=== PATIENT | male | born 1955 | race Caucasian/White ===

== ENCOUNTER 2022-11-18 19:22 | Emergency (ER) | payer OTHER, BC, MEDICAID ==
[~2022-11-18] VITALS: Ht 175.3 cm; Wt 48.2 kg
[2022-11-18 20:06] LABS: BASOPHILS # (AUTO) 0.1 X10'3 (0-0.2); BASOPHILS % (AUTO) 0.8 % (0-1); EOSINOPHILS # (AUTO) 0.5 X10'3 (0-0.9); EOSINOPHILS % (AUTO) 5.6 % (0-6); HEMATOCRIT 48.4 % (42.0-52.0); LYMPHOCYTES # (AUTO) 2.8 X10'3 (1.1-4.8); LYMPHOCYTES % (AUTO) 30.3 % (21-51); MEAN CORPUSCULAR VOLUME 93.8 FL (78-98); MEAN PLATELET VOLUME 8.3 FL (7.4-10.4); MONOCYTES # (AUTO) 0.6 X10'3 (0-0.9); MONOCYTES % (AUTO) 6.8 % (2-12); NEUTROPHILS # (AUTO) 5.1 X10'3 (1.8-7.7); NEUTROPHILS % (AUTO) 56.5 % (42-75); PLATELET COUNT 299 X10'3 (140-440); RED BLOOD COUNT 5.15 X10'6 (4.70-6.10); RED CELL DISTRIBUTION WIDTH 14.1 % (11.5-14.5); WHITE BLOOD COUNT 9.1 X10'3 (4.5-11.0)
[2022-11-18 20:28] LABS: ALANINE AMINOTRANSFERASE 19 U/L (12-78); ALBUMIN 3.6 G/DL (3.4-5.0); ALBUMIN/GLOBULIN RATIO 0.9 (1.1-1.5); ALKALINE PHOSPHATASE 70 IU/L (46-116); ANION GAP 8 (8-16); ASPARTATE AMINO TRANSFERASE 18 U/L (10-37); BILIRUBIN,TOTAL 0.3 MG/DL (0.1-1.0); BLOOD UREA NITROGEN 20 MG/DL (7-18); BUN/CREATININE RATIO 20.6 (10.0-20.0); CALCIUM 9.4 MG/DL (8.5-10.1); CHLORIDE 105 MMOL/L (99-107); CREATININE 0.97 MG/DL (0.60-1.10); GLUCOSE 117 MG/DL (70-104); POTASSIUM 3.9 MMOL/L (3.5-5.1); PRO BRAIN NATRIURETIC PEPTIDE 122 PG/ML (0-125); SODIUM 140 MMOL/L (135-145); TOTAL CARBON DIOXIDE 26.6 MMOL/L (24-32); TOTAL PROTEIN 7.5 G/DL (6.4-8.2); eCRCL 50 ML/MIN; eGFR 77 ML/MIN
[2022-11-18 21:40] VITALS: TEMP 97.8
--- NOTE | 2022-11-18 23:27 | NUR ---
PT WAITING IN LOBBY FOR ER ROOM, ER IS FULL OF ADMITTED PT, PT IS RESTING QUIETLY, NO RESP DISTRESS, TALKING FULL SENTENCES
[2022-11-19 02:14] VITALS: BP 126/92; PULSE 100; RESP 18; O2SAT 97
[2022-11-19] MEDS ORDERED: BUDE10.22 INH (02:21)
[2022-11-19] MEDS ORDERED: ALB0.5UD IH (02:21)
[2022-11-19] MEDS ORDERED: ALBU18HF2 INH (02:21)
[2022-11-19] MEDS ORDERED: NEBU-237 (02:21)
[2022-11-19] MEDS ORDERED: triamcinolone acetonide 40mg/ml inj IM ONE (02:25)
== END 2022-11-19 02:30 | disposition home or self-care (01) ==
LOC: ER 19:23
DX: J45.901 Unspecified asthma with (acute) exacerbation (principal); Z20.822 Contact with and (suspected) exposure to COVID-19; Z56.0 Unemployment, unspecified
CPT/HCPCS: 36415; 80053; 83880; 84484; 85025; 87811; 93005; 96372; 99284; J3301

== ENCOUNTER 2024-11-03 17:32 | Inpatient (IN) | payer OTHER, BC, MEDICAID ==
[~2024-11-03] VITALS: Ht 165.1 cm; Wt 58.2 kg
[~2024-11-03 17:32] MED LIST: ALBU18HF2 INH; BUDE10.22 INH; NEBU-237; rocuronium 10mg/ml inj IV ONE
--- NOTE | 2024-11-03 17:45 | ELECTROCARDIOGRAPH REPORT ---
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
--- NOTE | 2024-11-03 17:49 | Physician Documentation ---
History of Present Illness General Chief Complaint: Respiratory Distress Stated Complaint: SOB Time Seen by MD: 17:41 Primary Medical Doctor: NEW TO [facility] History of Present Illness Initial Comments Patient is a 69-year-old male brought in in respiratory failure by EMS. The EMS call was for shortness of breath. When EMS arrived the patient was agitated and fighting with EMS. The patient was restrained in during the restraint he became apneic and bradycardic with a heart rate of 30. They bag-valve ventilated the patient he was unresponsive during transport. On arrival to the emergency department patient was unresponsive in the resuscitation [place] he did become responsive and became significantly agitated. History was limited secondary to the patient being disoriented and unable to provide any history the history was provided by EMS. Medication Reconciliation Allergies: Coded Allergies: No Known Allergies (Unverified , 11/03/24) Scheduled Fluticasone Propion/Salmeterol (Fluticasone-Salmeterol 250-50), 1 PUFFS INH Q12H, (Reported) Tiotropium [place] (Spiriva), 1 CAP INH DAILY, (Reported) Scheduled PRN Albuterol Sulfate (Ventolin Hfa), 2 PUFFS INH Q4HPRN PRN for wheezing, (Reported) Miscellaneous Medications Unable to Obtain Medications (Unable to Obtain Medications), (Reported) Durable Medical Equipment Nebulizer (Nebulizer), UNIT, (DME) Past Medical History Past Medical History: COPD Past Surgical History: no surgical history Smoking: Cigarettes, Greater than 1 pack/day Alcohol Use: None Drug Use: none Lives with: Family Lives In: Home Occupation: unemployed Review of Systems Unable to obtain complete ROS: altered mental status Physical Exam Physical Exam Vital Signs: Heart Rate: 135, Respiratory Rate: 0, BP: 176/83, Pulse Oximetry: 87, Weight: 59.090 Physical Exam VITALS: Reviewed and as above. GENERAL: Patient was initially unresponsive in respiratory failure HEENT: Normocephalic, atraumatic, PERRL, EOMI, dry mucosa, no erythema RESPIRATORY: Bilateral wheezes and rhonchi severe respiratory distress CHEST: No accessory muscle use, no retractions CV: Tachycardic rate, rhythm, no edema, no murmur, No: JVD GI: Soft, non-tender, bowels sounds present, no rebound, guarding, or rigidity BACK: No CVA tenderness, or swelling MUSCULOSKELETAL: No deformities, no edema SKIN: Warm and extremely diaphoretic, no rash NEURO: Initially the patient was not responding to painful stimuli patient did become agitated moved all extremities PSYCH: Normal mood and affect, no agitation Progress Results/Orders Reviewed/noted all lab results: Yes Results/Orders Orders - JAROCHO FORDE MD Culture Blood (11/03/24 17:41) Chest,Single View (11/03/24 17:41) Covid19 Binax Poc Result Entry (11/03/24 17:53) Cult Urine + [place] [address] (11/03/24 18:28) Abg (Arterial Blood Gas) (11/03/24 ) Sputum Inducement (11/03/24 ) Completed Orders - JAROCHO FORDE MD Electrocardiogram (11/03/24 17:41) Cbc/Diff (11/03/24 17:41) MG (11/03/24 17:41) Chest,Single View (11/03/24 17:41) Procalcitonin (11/03/24 17:41) BMP (11/03/24 17:41) Hs Troponin I W Calculations (11/03/24 17:41) Hs Troponin I W Calculations (11/03/24 19:41) Hs Troponin I W Calculations (11/03/24 20:41) Lacticsepsis (11/03/24 17:41) PBNP (11/03/24 17:41) Normal Saline 1000ml (0.9% Sodium Chlori (11/03/24 17:45) Ceftriaxone 2gm/D5w 50ml Bag (Rocephin 2 (11/03/24 17:45) Methylprednisolone Sod Succ (Solumedrol (11/03/24 17:45) Magnesium Sulf-Water 2g/50ml (Magnesium (11/03/24 17:45) Ua W/Microscopic, Cult If Ind (11/03/24 18:01) Lactic,2hr (11/03/24 19:30) Vital Signs 11/03/24 11/03/24 11/03/24 11/03/24 17:34 17:45 17:50 17:59 Pulse 135 139 Resp 0 16 B/P (MAP) 176/83 178/92 Pulse Ox 87 98 FiO2 50 35 811/03/24 11/03/24 11/03/24 18:01 18:12 18:13 18:30 Temp 97.7 Pulse 126 121 Resp 18 21 18 B/P (MAP) 187/104 156/85 (108) 146/84 (104) Pulse Ox 94 92 FiO2 35 35 11/03/24 11/03/24 11/03/24 11/03/24 18:45 18:46 18:52 18:54 Pulse 139 Resp 16 B/P (MAP) 178/92 178/92 180/98 Pulse Ox 93 FiO2 50 11/03/24 11/03/24 11/03/24 11/03/24 18:56 18:58 19:06 19:13 Temp 97.0 Pulse 121 Resp 20 18 B/P (MAP) 187/107 (133) 187/107 187/107 Pulse Ox 88 FiO2 35 11/03/24 11/03/24 11/03/24 11/03/24 19:17 19:33 19:58 19:59 Temp 96.7 97.7 Pulse 116 109 Resp 18 18 B/P (MAP) 129/71 (90) 78/53 120/70 (87) 120/70 Pulse Ox 94 99 O2 Flow Rate 50.0 50.0 11/03/24 11/03/24 11/03/24 11/03/24 20:05 20:15 20:30 20:37 Temp 97.8 97.5 Pulse 103 107 Resp 18 23 B/P (MAP) 87/59 107/65 (79) 151/82 125/69 (87) Pulse Ox 98 99 FiO2 50 50 11/03/24 11/03/24 11/03/24 20:42 21:09 21:38 Temp 97.2 Pulse 102 99 Resp 18 18 18 B/P (MAP) 100/61 (74) Pulse Ox 98 98 FiO2 50 50 Laboratory Tests Test 11/03/24 17:34 11/03/24 17:36 11/03/24 17:52 11/03/24 18:01 Glucometer 247 H White Blood Count 10.7 Red Blood Count 4.56 L Hemoglobin 14.2 Hematocrit 43.2 Mean Corpuscular Volume 94.6 Mean Corpuscular Hemoglobin 31.0 Mean Corpuscular Hemoglobin Concent 32.8 L Red Cell Distribution Width 15.6 H Platelet Count 281 Mean Platelet Volume 8.5 Neutrophils (%) (Auto) 45.6 Lymphocytes (%) (Auto) 42.1 Monocytes (%) (Auto) 6.1 Eosinophils (%) (Auto) 5.2 Basophils (%) (Auto) 1.0 Neutrophils # (Auto) 4.9 Lymphocytes # (Auto) 4.5 Monocytes # (Auto) 0.7 Eosinophils # (Auto) 0.6 Basophils # (Auto) 0.1 CBC Comment Sodium Level 139 Potassium Level 3.6 Chloride Level 103 Carbon Dioxide Level 18.9 L Anion Gap 17 H Blood Urea Nitrogen 23 H Creatinine 1.79 H Estimated GFR/1.73 m2 38 BUN/Creatinine Ratio 12.8 Glucose Level 283 H Lactic Acid Level 8.1 *H Calcium Level 8.7 Magnesium Level 2.5 H Troponin I High Sensitivity 6 Pro-B-Type Natriuretic Peptide 62 Albumin 3.8 Procalcitonin < 0.05 Chemistry Comments Blood Gas Specimen Type Arterial Blood Gas Puncture Site Rr O2 Saturation 98.4 H Arterial Blood pH (Temp corrected) 7.085 *L Arterial Blood pCO2 (Temp correct) 61.1 *H Arterial Blood pO2 (Temp corrected) 160.4 H Arterial Blood PO2/FiO2 Ratio 3.21 Arterial Blood HCO3 17.9 L Arterial Blood Base Excess -12.7 L Arterial Blood Oxyhemoglobin 97.3 Arterial Blood Carboxyhemoglobin 0.9 Arterial Blood Methemoglobin 0.2 Arterial Blood Deoxyhemoglobin 1.6 Clement Test Positive Blood Gas Hemoglobin 14.9 Blood Gas Temperature 37.0 Blood Gas Set Respiration Rate 16 Blood Gas Modality Vent - aprv FiO2 50.0 Blood Gas Tidal Volume 500 Blood Gas PEEP 5 Blood Gas Critical Value Called To [facility] Urine Specimen Description Coulter cath Urine Color Yellow Urine Clarity Slightly cloudy Urine pH 6.0 Urine Specific [place] >=1.030 Urine Protein >=300 H Urine Glucose (UA) 250 H Urine Ketones Negative Urine Occult Blood Large H Urine Nitrite Negative Urine Bilirubin Negative Urine Urobilinogen 0.2 Urine Leukocyte Esterase Negative Urine RBC Tntc Urine WBC Tntc H Urine Squamous Epithelial Cells None seen Urine Bacteria 4+ Urine Coarse Granular Casts 3-5 Urine Culture Indicated Indicated Volume Urine Centrifuged 10 ml Urine Comment Urine Opiates Screen Negative Urine Methadone Screen Negative Urine Fentanyl Screen Negative Urine Barbiturates Screen Negative Urine Phencyclidine Screen Negative Urine Amphetamines Screen Positive Urine Benzodiazepines Screen Negative Urine Cocaine Screen Negative Urine Cannabinoids Screen Negative Drug Screen Comment Test 11/03/24 18:03 11/03/24 20:01 11/03/24 21:15 11/03/24 21:47 SARS-CoV-2 Antigen (Rapid) Negative Lactic Acid Level 1.1 Troponin I High Sensitivity 31 37 Troponin I High Sens Percent Delta 416 19 Troponin I Hi Sens Absolute Change 25 6 Magnesium Level 2.0 Thyroid Stimulating Hormone (TSH) 1.20 Microbiology Date/Time Source Procedure Growth Status 11/03/24 18:28 Urine Coulter Cath Urine Culture - Preliminary NO GROWTH AFTER 1 DAY Resulted 11/03/24 18:21 Blood Hand Left Blood Culture - Preliminary NO GROWTH AFTER 1 DAY Resulted EKG/XRAY/CT/US/VASC/MRI EKG : Intepreting Monitor?: Yes Indication: shortness of breath EKG: sinus tach EKG Blocks: none [place]: normal Hypertrophy: none Additional Comment 1743: ST rate 152. No STEMI 2157: ST rate 105. No acute ST changes. No STEMI Chest X-Ray : Interpreted By: both Views: 1 VIEW Indication: post procedure Lungs: normal Mediastinum: normal Ribs/Bones: normal Abdomen: normal Impression: no acute disease Additional Comments [place] [id number] DIAGNOSTIC RADIOLOGY Patient: CYNTHIA GIBBS Medical Record: [id number] [facility] : 1955, Age: 69 Sex: Male Location: ER Patient Status: [facility] ER Service Date/Time: 11/03/241740 Ordering Physician: JAROCHO FORDE MD Exam: CHEST,SINGLE VIEW CHEST RADIOGRAPH Indication: SEPSIS Technique: Single frontal view of the chest was obtained Comparison: None FINDINGS: Lines and Tubes: Endotracheal and enteric tubes are in satisfactory position. Lungs: No focal consolidation. Mild hyperinflation of the lungs. Temporary cardiac pacing device overlies the chest wall. Pleura: No effusion. No pneumothorax. Cardiomediastinal contours: Unremarkable Bones: No acute osseous abnormality. IMPRESSION: No acute cardiopulmonary disease. Electronically Signed by:DOTTY LOPES DO Date & Time: 11/03/241803 Dictated by: DOTTY LOPES DO Dictation date and time: 11/03/241803 Primary Care Provider: NO PRIMARY CARE PROVIDER cc: JAROCHO FORDE MD ~ CT : Interpreted By: self CT: head With Contrast?: No Impression [address] [address] CAT SCAN Patient: CYNTHIA GIBBS Medical Record: [id number] [facility] : 1955, Age: 69 Sex: Male Location: ER Patient Status: [facility] ER Service Date/Time: 11/03/241821 Ordering Physician: TESSY MONTENEGRO NP Exam: CT HEAD EXAM: CT CT HEAD INDICATION: Altered LOC TECHNIQUE: CT of the head without intravenous contrast. Radiation Dose Information: CT Dose: CTDI volume is 68.48 mGy. Dose-length product is 1359.81 mGy*cm The dose indicators for CT are the volume Computed Tomography (CT) Dose Index (CTDIvol) and the Dose Length Product (DLP), and are measured in units of mGy and mGy-cm, respectively. These indicators are not patient dose, but values generated from the CT scanner acquisition factors. The report includes radiation exposure data for exposures received during this examination. COMPARISON: None FINDINGS: Evaluation is degraded by streak artifact. No acute territorial infarct, intracranial hemorrhage, or mass effect. There are global involutional changes with compensatory prominence of the ventricles and sulci. Patchy periventricular and subcortical white matter hypoattenuation is nonspecific but may be related to small vessel ischemic disease. The orbits are normal. Opacification of the right maxillary antrum and ethmoid air cells. Subtotal opacification of the left maxillary antrum. Moderate mucosal thickening within the right sphenoid sinus and frontal sinuses. In cidental note of endotracheal and nasogastric tubes. The osseous structures are unremarkable. IMPRESSION: 1. Artifact degraded evaluation without evidence for acute territorial infarct, intracranial hemorrhage, or mass effect. 2. Age-related involutional changes. Chronic microvascular changes. 3. Paranasal sinus disease as detailed. 4. If clinical symptoms persist, MRI may be beneficial in further evaluation. Electronically Signed by:PO GRECO MD Date & Time: 11/03/242006 Dictated by: PO GRECO MD Dictation date and time: 11/03/242006 Primary Care Provider: NO PRIMARY CARE PROVIDER cc: TESSY MONTENEGRO HEARING AID MECHANIC ~ [place] [id number] CAT SCAN Patient: CYNTHIA GIBBS Medical Record: [id number] [facility] : 1955, Age: 69 Sex: Male Location: ER Patient Status: [facility] ER Service Date/Time: 11/03/241821 Ordering Physician: TESSY MONTENEGRO HEARING AID MECHANIC Exam: CT CHEST ABDOMEN PELVIS EXAM: CT CT CHEST ABDOMEN PELVIS History: Altered LOC/Abnormal labs Comparison Study: None TECHNIQUE: Multidetector CT of the chest, abdomen, and pelvis was performed. Imaging was performed without IV contrast. Axial, coronal, and sagittal multiplanar reformats were obtained from the axial data set by the technologist. Radiation Dose : CTDI vol 21.0 mGy, DLP 1709.58 mGy*cm. Findings: CT chest: Evaluation is degraded by respiratory motion. Lungs: An endotracheal tube is noted. Assessment of the airways is suboptimal given significant motion artifact, and narrowing of the mainstem bronchi cannot be excluded. There is prominent bronchial wall thickening throughout the lungs, with likely mucoid impaction, most pronounced within the lower lobes. There is interlobular septal thickening. There is pleural parenchymal scarring of the lung apices. Pleura: Unremarkable Heart/Great vessels: No cardiomegaly or pericardial effusion. There are mild atherosclerotic calcifications of the aorta. Ectasia of the ascending aorta measuring up to 3.9 cm. Mediastinum: Unremarkable. Soft tissues/Bones: Unremarkable CT abdomen/pelvis: Liver: Unremarkable. Spleen: Unremarkable. Pancreas: Unremarkable. Gallbladder: Unremarkable. Adrenals: Unremarkable. Kidneys: Unremarkable. No hydronephrosis. Pelvic Viscera: Marked prostatomegaly. A Coulter catheter and gas is seen within the urinary bladder. Vasculature: Ectasia of the infrarenal abdominal aorta. Moderate atherosclerotic aortoiliac calcifications. Retroperitoneum: Unremarkable. Bowel: Colonic diverticulosis without CT evidence of diverticulitis. No bowel obstruction. The appendix is normal. A nasogastric tube is noted. Musculoskeletal: Degenerative changes of the lumbar spine. Soft tissues: Unremarkable. Impression: 1. Motion degraded evaluation. Suboptimal assessment of the mainstem bronchi with narrowing and/or aspiration not excluded. Prominent bronchial wall thickening, with likely mucoid impaction, sequela of aspiration cannot be excluded. 2. Additional findings as detailed. Electronically Signed by:PO GRECO MD Date & Time: 11/03/242027 Dictated by: PO GRECO MD Dictation date and time: 11/03/242027 Primary Care Provider: NO PRIMARY CARE PROVIDER cc: TESSY MONTENEGRO HEARING AID MECHANIC ~ Medical Decision Making Findings Patient presented for respiratory distress/shortness for breath. Per EMS has a history of COPD. Prior to arrival patient became unresponsive requiring respiratory support via Ambu bag. Considered hypoglycemia. On arrival his blood glucose was checked and was in the 200s. Considered narcotic overdose and patient was given Narcan. Few minutes after Narcan administration he did start yelling and screaming. He was combative and moving all extremities and had no purposeful movement. Given his severe respiratory distress he was intubated immediately by Dr. Forde without complication. Given the altered mental status CTA of the head was completed. There was no intracranial abnormality seen. He had an elevated lactic acid initially and he was treated with IV fluids. A CT scan of the chest, abdomen and pelvis was performed with no acute abnormalities seen though there is a possibility of aspiration seen on chest CT. He was treated with ceftriaxone. Being admitted to the regional owner operator truck driver service for further evaluation and management of his acute respiratory condition. Case was discussed extensively with initial supervising physician, Dr. Forde. Condition was also reviewed at intervals with fast food shift supervisor supervising physician, Dr. Seals. Case was signed out to regional owner operator truck driver who agreed to evaluate patient for admission. Departure Disposition: ADMITTED INPATIENT Admitted to Inpatient Unit: to regional owner operator truck driver Admission Level of Care: Critcal Care Impression: Primary Impression: COPD exacerbation Additional Impression: Respiratory distress Condition: Critical Referrals: NO PRIMARY CARE PROVIDER (PCP) Critical Care Note Total Time (mins): 45 Critical Care Note The very real possibility of a deterioration of this patient's condition required the highest level of my preparedness for sudden, emergent intervention. I provided critical care services, which included medication orders, frequent reevaluations of the patient's condition and response to treatment, ordering and reviewing test results, and discussing the case with various consultants. Excludes time spent performing separately billable procedures. The critical care time associated with the care of the patient was 45 minutes Additional Comment Additional Comment The patient came in in respiratory failure the patient became significantly agitated after being bag-valve ventilated he was initially unresponsive he then became agitated and continued respiratory distress the decision was made to intubate the patient the patient was intubated utilizing rapid sequence intubation the patient received etomidate 10 mg of 50 mg of rocuronium and was intubated with direct laryngoscopy. Capnography demonstrated CO2 return and lungs were auscultated bilaterally. Chest x-ray demonstrated tube in the good position the patient oxygen saturations improved the patient was given ceftriaxone for possible pneumonia the patient will be admitted for respiratory failure. Signature Scribe Signature: No Scribe. Attestation: The note accurately reflects work and decisions made by me.Tessy Kurtz NP 11/03/24 23:00 JAROCHO FORDE MD Nov 03, 2024 17:49 TESSY MONTENEGRO NP Nov 03, 2024 22:44 RAVI COLON MD Nov 04, 2024 09:01
[2024-11-03 17:50] VITALS: BP 190/105; PULSE 139; RESP 16; O2SAT 98
[2024-11-03 17:53] LABS: MEAN PLATELET VOLUME 8.5 FL (7.4-10.4); RED CELL DISTRIBUTION WIDTH 15.6 % (11.5-14.5)
[2024-11-03 17:56] LABS: ABG BASE EXCESS -12.7 mmol/L (-2.0-3.0); ABG HCO3 17.9 mmol/L (21.0-28.0); ABG OXYGEN SATURATION 98.4 % (94.0-98.0); ABG PCO2 (T) 61.1 mmHg (35.0-48.0); ABG PH (T) 7.085 (7.350-7.450); ABG PO2 (T) 160.4 mmHg (83.0-108.0); ALLEN'S TEST POSITIVE; FCOHb 0.9 % (0.5-1.5); FHHb 1.6 % (0.0-5.0); FIO2 50.0 mmHg/%; FMetHb 0.2 % (0.0-1.5); FO2Hb 97.3 % (94.0-98.0); MODE VENT - APRV; PATIENT TEMPERATURE 37.0; PEEP 5 cm H2O; RESPIRATORY RATE 16 b/min; TIDAL VOLUME 500 mL; TOTAL HEMOGLOBIN 14.9 G/dl (13.5-17.5)
[2024-11-03] MEDS: propofol 1000mg/100ml bottle 100 ML IV ONE (18:01)
[2024-11-03] MEDS: normal saline 1000ML IV soln IVB ONE ×2 (18:03→18:27)
--- NOTE | 2024-11-03 18:07 | RADIOLOGY REPORT ---
CHEST RADIOGRAPH Indication: SEPSIS Technique: Single frontal view of the chest was obtained Comparison: None FINDINGS: Lines and Tubes: Endotracheal and enteric tubes are in satisfactory position. Lungs: No focal consolidation. Mild hyperinflation of the lungs. Temporary cardiac pacing device over lies the chest wall. Pleura: No effusion. No pneumothorax. Cardiomediastinal contours: Unremarkable Bones: No acute osseous abnormality. IMPRESSION: No acute cardiopulmonary disease.
[2024-11-03 18:08] LABS: CREATININE 1.79 MG/DL (0.60-1.10); PRO BRAIN NATRIURETIC PEPTIDE 62 PG/ML (0-125); TOTAL CARBON DIOXIDE 18.9 MMOL/L (24-32); eCRCL 32 ML/MIN; eGFR 38 ML/MIN
[2024-11-03 18:18] LABS: LEUKOCYTE ESTERASE ,URINE NEGATIVE (Neg); NITRITES, URINE NEGATIVE (Neg); OCCULT BLOOD,URINE LARGE (Neg)
[2024-11-03] MEDS: magnesium sulf-water 2g/50mL 50 ML IV ONE (18:22)
[2024-11-03 18:25] LABS: UA COLLECTION TYPE FOLEY CATH
[2024-11-03 18:27] LABS: SQUAMOUS EPITHELIAL CELL,UR NONE SEEN /LPF (FEW)
[2024-11-03] MEDS: CefTRIAXone 2gm/D5W 50ml BAG 50 ML IV ONE (18:29)
[2024-11-03] MEDS: propofol 1000mg/100ml bottle 100 ML IV SCH (18:45)
[2024-11-03 18:54] VITALS: BP 187/107; PULSE 139; RESP 16; O2SAT 93
[2024-11-03] MEDS: FENTANYL-0.9 % NACL/PF 100 ML IV SCH (19:13)
[2024-11-03] MEDS: MIDAZolam 5mg/ml 2ml vial IV ONE (19:22)
[2024-11-03] MEDS: MIDAZolam 5mg/ml 2ml vial ONE (19:24)
--- NOTE | 2024-11-03 20:11 | RADIOLOGY REPORT ---
EXAM: CT CT HEAD INDICATION: Altered LOC TECHNIQUE: CT of the head without intravenous contrast. Radiation Dose Information: CT Dose: CTDI volume is 68.48 mGy. Dose-length product is 1359.81 mGy*cm The dose indicators for CT are the volume Computed Tomography (CT) Dose Index (CTDIvol) and the Dose Length Product (DLP), and are measured in units of mGy and mGy-cm, respectively. These indicators are not patient dose, but values generated from the CT scanner acquisition factors. The report includes radiation exposure data for exposures received during this examination. COMPARISON: None FINDINGS: Evaluation is degraded by streak artifact. No acute territorial infarct, intracranial hemorrhage, or mass effect. There are global involutional changes with compensatory prominence of the ventricles and sulci. Patchy periventricular and subcorti dennis white matter hypoattenuation is nonspecific but may be related to small vessel ischemic disease. The orbits are normal. Opacification of the right maxillary antrum and ethmoid air cells. Subtotal o pacification of the left maxillary antrum. Moderate mucosal thickening within the right sphenoid sin us and frontal sinuses. Incidental note of endotracheal and nasogastric tubes. The osseous structure s are unremarkable. IMPRESSION: 1. Artifact degraded evaluation without evidence for acute territorial infarct, intracranial hemorrha ge, or mass effect. 2. Age-related involutional changes. Chronic microvascular changes. 3. Paranasal sinus disease as detailed. 4. If clinical symptoms persist, MRI may be beneficial in further evaluation.
--- NOTE | 2024-11-03 20:31 | RADIOLOGY REPORT ---
EXAM: CT CT CHEST ABDOMEN PELVIS History: Altered LOC/Abnormal labs Comparison Study: None TECHNIQUE: Multidetector CT of the chest, abdomen, and pelvis was performed. Imaging was performed wi thout IV contrast. Axial, coronal, and sagittal multiplanar reformats were obtained from the axial da ta set by the technologist. Radiation Dose : CTDI vol 21.0 mGy, DLP 1709.58 mGy*cm. Findings: CT chest: Evaluation is degraded by respiratory motion. Lungs: An endotracheal tube is noted. Assessment of the airways is suboptimal given significant motio n artifact, and narrowing of the mainstem bronchi cannot be excluded. There is prominent bronchial wa ll thickening throughout the lungs, with likely mucoid impaction, most pronounced within the lower lo bes. There is interlobular septal thickening. There is pleural parenchymal scarring of the lung apice s. Pleura: Unremarkable Heart/Great vessels: No cardiomegaly or pericardial effusion. There are mild atherosclerotic calcific ations of the aorta. Ectasia of the ascending aorta measuring up to 3.9 cm. Mediastinum: Unremarkable. Soft tissues/Bones: Unremarkable CT abdomen/pelvis: Liver: Unremarkable. Spleen: Unremarkable. Pancreas: Unremarkable. Gallbladder: Unremarkable. Adrenals: Unremarkable. Kidneys: Unremarkable. No hydronephrosis. Pelvic Viscera: Marked prostatomegaly. A Coulter catheter and gas is seen within the urinary bladder. Vasculature: Ectasia of the infrarenal abdominal aorta. Moderate atherosclerotic aortoiliac calcifica tions. Retroperitoneum: Unremarkable. Bowel: Colonic diverticulosis without CT evidence of diverticulitis. No bowel obstruction. The appen lance is normal. A nasogastric tube is noted. Musculoskeletal: Degenerative changes of the lumbar spine. Soft tissues: Unremarkable. Impression: 1. Motion degraded evaluation. Suboptimal assessment of the mainstem bronchi with narrowing and/or a spiration not excluded. Prominent bronchial wall thickening, with likely mucoid impaction, sequela o f aspiration cannot be excluded. 2. Additional findings as detailed.
[2024-11-03] MEDS: COMMUNICATION ORDER 1 EA MISC MC ONE (20:36)
[2024-11-03] MEDS ORDERED: naloxone 2mg/2ml inj ONE (21:00)
[2024-11-03 21:09] VITALS: BP 109/60; PULSE 102; RESP 18; O2SAT 98
[2024-11-03] MEDS ORDERED: dexmedetomidine inj. 1,000 MCG in normal saline 250ml IV soln 240 ML IV SCH (21:10)
[2024-11-03] MEDS ORDERED: magnesium hydroxide 30ml (MOM) UD suspension PO PRN (21:40)
[2024-11-03] MEDS ORDERED: morphine 4 MG/ML inj SYRINge IV PRN (21:40)
[2024-11-03] MEDS ORDERED: ipratropium/albuterol 3ml nebule NEB PRN (21:40)
[2024-11-03] MEDS: midazolam 1 mg/ML 2ml injection IV PRN (22:01)
[2024-11-03] MEDS: PERFLUTREN PROTEIN-A MICROSPHR (Optison) 0.22 MG/ML 3ML VIAL IV ONE (22:01)
[2024-11-03] MEDS: LidoCAINE 2% Topical Jelly 11mL syringe (UROJET) TOP ONE (22:01)
[2024-11-03] MEDS ORDERED: NORepinephrine 8mg/ 250ml NS 250 ML IV PRN (22:10)
[2024-11-03] MEDS: normal saline 1000ml 1,000 ML IVB ONE (22:17)
[2024-11-03 22:21] LABS: URINE AMPHETAMINE SCREEN POSITIVE (Neg); URINE BARBITUATE SCREEN NEGATIVE (Neg); URINE BENZODIAZEPINES SCREEN NEGATIVE (Neg); URINE CANNABINOID SCREEN NEGATIVE (Neg); URINE COCAINE SCREEN NEGATIVE (Neg); URINE METHADONE SCREEN NEGATIVE (Neg); URINE OPIATE SCREEN NEGATIVE (Neg); URINE PHENCYCLIDINE SCREEN NEGATIVE (Neg)
[2024-11-03] MEDS: dexmedetomidin/NS 400mcg/100ml 100 ML IV SCH (22:21)
[2024-11-03 23:13] VITALS: BP 118/69; PULSE 90; RESP 18; O2SAT 99
[2024-11-03 23:34] LABS: ABG BASE EXCESS -8.6 mmol/L (-2.0-3.0); ABG HCO3 17.3 mmol/L (21.0-28.0); ABG OXYGEN SATURATION 98.4 % (94.0-98.0); ABG PCO2 (T) 33.9 mmHg (35.0-48.0); ABG PH (T) 7.315 (7.350-7.450); ABG PO2 (T) 125.9 mmHg (83.0-108.0); ALLEN'S TEST Modified; FCOHb 0.3 % (0.5-1.5); FHHb 1.6 % (0.0-5.0); FIO2 50.0 mmHg/%; FMetHb 0.3 % (0.0-1.5); FO2Hb 97.8 % (94.0-98.0); MODE VENT - PRVC; PATIENT TEMPERATURE 34.9; PEEP 5 cm H2O; RESPIRATORY RATE 18 b/min; TIDAL VOLUME 450 mL; TOTAL HEMOGLOBIN 12.8 G/dl (13.5-17.5)
--- NOTE | 2024-11-03 23:39 | CONSULTATION REPORT ---
Consult Providers to CC CC: RODERICK POLLARD MD Altered Mental Status ~ History of Present Illness Reason for Admit\Complaint: Encephalopathy History of Present Illness . Patient is a 69 year old gentleman who was brought by emergency medical services. The initial call was for shortness of breath however at the time the EMS had arrived to his place he was noted to be agitated and combative. Patient was restrained and while he was being restrained he became apneic and bradycardic with his heart rate dropping down to 30 beats per minute. They did do bag valve mask ventilation. The patient was unresponsive during transport and at the time he arrived in the emergency department he was also noted to be unresponsive and in respiratory distress and he was intubated. He was found to have a high lactic acid up to 8. He was treated with solumedrol 125 milligrams once. He got 3 liters of fluids. He was also treated with rocephin 2 grams once in the ER. I saw him in the ER first and then saw him multiple times in the ICU. I reviewed his vent settings. He had a CT scan of his head which did not show any bleeding. He also had a CT scan of his abdomen and pelvis. He has been sedated on fentanyl and propofol but because of borderline blood pressures we have decided to add precedex. This would enable us not go up on the propofol dose. I have given more IV fluids. I have come back to check on him in the ICU and have also put him on maintenance IV fluid with normal saline initially at 100cc/hr but we increased to 125cc/hr. His lactic acid that was initially very high rapidly corrected. His pro calcitonin was negative. 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 He was not making a lot of urine on my assessments and and this helped prompt me to continue to give him more fluids. I made additional orders for checking his TSH and also checking his serum magnesium. After a few hours I came back to check on him in the ICU. At that time his map was 63. He was on the vent. His vent settings were a AC PRVC with FIO2 of 45%, tidal volume of 450, rate of 18, PEEP of 5. He was sedated and tolerating the vent well.. His vital signs showed the heart rate of 78. His blood pressure was 89 / 53mmHg with MAP of 63. We did a physical examination with the help of the nurse at the bedside and we decided to give him another one liter of IV fluids. Thereafter we were going to increase his maintenance rate to 125 CC per hour. I also asked for nutrition consult as he is noted to appear dishevelled. We will also check a repeat lactic acid and then a chest X-ray. We also sent for sputum culture. We have also added protonix to his drug regimen. Current Medications Medications (Trade) Dose Ordered Sig/Yvonne Route PRN Reason Start Time Stop Time Status Last Admin Dose Admin Sodium Chloride (0.9% sodium chloride (NS) 1000ml IV soln) 1,000 ml ONCE ONCE IVB 11/03/24 17:45 11/03/24 17:47 DC 11/03/24 18:03 1,000 ML Ceftriaxone Sodium/Dextrose 50 ml @ 100 mls/hr ONCE ONCE IV 11/03/24 17:45 11/03/24 18:14 DC 11/03/24 18:29 100 MLS/HR Methylprednisolone Sodium Succinate (SoluMEDROL 125mg inj) 125 mg ONCE ONCE IV 11/03/24 17:45 11/03/24 17:47 DC 11/03/24 18:30 125 MG Sodium Chloride (0.9% sodium chloride (NS) 1000ml IV soln) 1,000 ml ONCE ONCE IVB 11/03/24 18:25 11/03/24 18:26 DC 11/03/24 18:27 1,000 ML Propofol 100 ml @ 1.773 mls/ hr Q48H IV 11/03/24 17:45 11/04/24 07:06 1.773 MLS/HR Fentanyl Citrate 100 ml @ 3.5 mls/hr [id number] IV 11/03/24 19:05 11/04/24 07:07 6.5 MLS/HR Midazolam HCl (Versed 5 MG/ML 2ML inj) 5 mg ONCE ONCE IV 11/03/24 19:20 11/03/24 19:21 DC 11/03/24 19:22 5 MG Dexmedetomidine/ Sodium Chloride 100 ml @ 2.955 mls/ hr [id number] IV 11/03/24 21:18 11/03/24 22:21 2.955 MLS/HR Midazolam HCl (VERSED 1 MG/ML 2 ML inj.) 2 mg Q45MIN PRN IV for anxiety/agitation 11/03/24 21:20 11/03/24 23:44 2 MG Sodium Chloride 1,000 ml @ 125 mls/hr Q8H IV 11/03/24 22:05 11/04/24 01:23 100 MLS/HR Sodium Chloride 1,000 ml @ 1,000 mls/hr Q1H ONCE IVB 11/03/24 22:05 11/03/24 23:04 DC 11/03/24 22:17 1,000 MLS/HR Sodium Chloride 1,000 ml @ 1,000 mls/hr Q1H ONCE IVB 11/04/24 02:00 11/04/24 02:59 DC 11/04/24 02:30 1,000 MLS/HR Pantoprazole Sodium (Protonix 40mg IV) 40 mg DAILY IV 11/04/24 08:00 11/04/24 07:06 40 MG Laboratory Tests Test 11/03/24 17:34 11/03/24 17:36 11/03/24 17:52 11/03/24 18:01 Glucometer 247 mg/dl (70-104) White Blood Count 10.7 X10'3 (4.5-11.0) Red Blood Count 4.56 X10'6 (4.70-6.10) Hemoglobin 14.2 g/dl (14.0-17.9) Hematocrit 43.2 % (42.0-52.0) Mean Corpuscular Volume 94.6 FL (78-98) Mean Corpuscular Hemoglobin 31.0 PG (27.0-31.0) Mean Corpuscular Hemoglobin Concent 32.8 g/dL (33.0-36.5) Red Cell Distribution Width 15.6 % (11.5-14.5) Platelet Count 281 X10'3 (140-440) Mean Platelet Volume 8.5 FL (7.4-10.4) Neutrophils (%) (Auto) 45.6 % (42-75) Lymphocytes (%) (Auto) 42.1 % (21-51) Monocytes (%) (Auto) 6.1 % (2-12) Eosinophils (%) (Auto) 5.2 % (0-6) Basophils (%) (Auto) 1.0 % (0-1) Neutrophils # (Auto) 4.9 X10'3 (1.8-7.7) Lymphocytes # (Auto) 4.5 X10'3 (1.1-4.8) Monocytes # (Auto) 0.7 X10'3 (0-0.9) Eosinophils # (Auto) 0.6 X10'3 (0-0.9) Basophils # (Auto) 0.1 X10'3 (0-0.2) CBC Comment Sodium Level 139 MMOL/L (135-145) Potassium Level 3.6 MMOL/L (3.5-5.1) Chloride Level 103 MMOL/L (99-107) Carbon Dioxide Level 18.9 MMOL/L (24-32) Anion Gap 17 (8-16) Blood Urea Nitrogen 23 MG/DL (7-18) Creatinine 1.79 MG/DL (0.60-1.10) Estimated GFR/1.73 m2 38 ML/MIN BUN/Creatinine Ratio 12.8 (10.0-20.0) Glucose Level 283 MG/DL (70-104) Lactic Acid Level 8.1 MMOL/L (0.4-2.0) Calcium Level 8.7 MG/DL (8.5-10.1) Magnesium Level 2.5 MG/DL (1.5-2.4) Troponin I High Sensitivity 6 ng/L (4-75) Pro-B-Type Natriuretic Peptide 62 PG/ML (0-125) Albumin 3.8 G/DL (3.4-5.0) Procalcitonin < 0.05 NG/ML (0-0.5) Chemistry Comments Blood Gas Specimen Type Arterial Blood Gas Puncture Site Rr O2 Saturation 98.4 % (94.0-98.0) Arterial Blood pH (Temp corrected) 7.085 (7.350-7.450) Arterial Blood pCO2 (Temp correct) 61.1 mmHg (35.0-48.0) Arterial Blood pO2 (Temp corrected) 160.4 mmHg (83.0-108.0) Arterial Blood PO2/FiO2 Ratio 3.21 mmHg/% Arterial Blood HCO3 17.9 mmol/L (21.0-28.0) Arterial Blood Base Excess -12.7 mmol/L (-2.0-3.0) Arterial Blood Oxyhemoglobin 97.3 % (94.0-98.0) Arterial Blood Carboxyhemoglobin 0.9 % (0.5-1.5) Arterial Blood Methemoglobin 0.2 % (0.0-1.5) Arterial Blood Deoxyhemoglobin 1.6 % (0.0-5.0) Clement Test Positive Blood Gas Hemoglobin 14.9 G/dl (13.5-17.5) Blood Gas Temperature 37.0 Blood Gas Set Respiration Rate 16 b/min Blood Gas Modality Vent - aprv FiO2 50.0 mmHg/% Blood Gas Tidal Volume 500 mL Blood Gas PEEP 5 cm H2O Blood Gas Critical Value Called To [facility] Urine Specimen Description Coulter cath Urine Color Yellow (Yellow) Urine Clarity Slightly cloudy (Clear) Urine pH 6.0 (4.8-8.0) Urine Specific [place] >=1.030 (1.001-1.035) Urine Protein >=300 mg/dl (Neg) Urine Glucose (UA) 250 mg/dl (Neg) Urine Ketones Negative mg/dl (Neg) Urine Occult Blood Large (Neg) Urine Nitrite Negative (Neg) Urine Bilirubin Negative (Neg) Urine Urobilinogen 0.2 E.U/dL (0.2-1.0) Urine Leukocyte Esterase Negative (Neg) Urine RBC Tntc /HPF (0-2) Urine WBC Tntc /HPF (0-4) Urine Squamous Epithelial Cells None seen /LPF (FEW) Urine Bacteria 4+ /HPF (Neg) Urine Coarse Granular Casts 3-5 /LPF (NEGATIVE) Urine Culture Indicated Indicated Volume Urine Centrifuged 10 ml Urine Comment Urine Opiates Screen Negative (Neg) Urine Methadone Screen Negative (Neg) Urine Fentanyl Screen Negative (Neg) Urine Barbiturates Screen Negative (Neg) Urine Phencyclidine Screen Negative (Neg) Urine Amphetamines Screen Positive (Neg) Urine Benzodiazepines Screen Negative (Neg) Urine Cocaine Screen Negative (Neg) Urine Cannabinoids Screen Negative (Neg) Drug Screen Comment Test 11/03/24 18:03 11/03/24 20:01 11/03/24 21:15 11/03/24 21:47 SARS-CoV-2 Antigen (Rapid) Negative (NEGATIVE) Lactic Acid Level 1.1 MMOL/L (0.4-2.0) Troponin I High Sensitivity 31 ng/L (4-75) 37 ng/L (4-75) Troponin I High Sens Percent Delta 416 % 19 % Troponin I Hi Sens Absolute Change 25 ng/L 6 ng/L Magnesium Level 2.0 MG/DL (1.5-2.4) Thyroid Stimulating Hormone (TSH) 1.20 ulU/ml (0.34-4.50) Test 11/03/24 23:29 11/04/24 02:20 11/04/24 03:29 Blood Gas Specimen Type Arterial Arterial Blood Gas Puncture Site Rr Rr O2 Saturation 98.4 % (94.0-98.0) 98.6 % (94.0-98.0) Arterial Blood pH (Temp corrected) 7.315 (7.350-7.450) 7.364 (7.350-7.450) Arterial Blood pCO2 (Temp correct) 33.9 mmHg (35.0-48.0) 27.5 mmHg (35.0-48.0) Arterial Blood pO2 (Temp corrected) 125.9 mmHg (83.0-108.0) 104.9 mmHg (83.0-108.0) Arterial Blood PO2/FiO2 Ratio 2.76 mmHg/% 3.03 mmHg/% Arterial Blood HCO3 17.3 mmol/L (21.0-28.0) 15.8 mmol/L (21.0-28.0) Arterial Blood Base Excess -8.6 mmol/L (-2.0-3.0) -9.0 mmol/L (-2.0-3.0) Arterial Blood Oxyhemoglobin 97.8 % (94.0-98.0) 97.8 % (94.0-98.0) Arterial Blood Carboxyhemoglobin 0.3 % (0.5-1.5) 0.5 % (0.5-1.5) Arterial Blood Methemoglobin 0.3 % (0.0-1.5) 0.3 % (0.0-1.5) Arterial Blood Deoxyhemoglobin 1.6 % (0.0-5.0) 1.4 % (0.0-5.0) Clement Test Modified Modified Blood Gas Hemoglobin 12.8 G/dl (13.5-17.5) 12.3 G/dl (13.5-17.5) Blood Gas Temperature 34.9 34.2 Blood Gas Set Respiration Rate 18 b/min 18 b/min Blood Gas Modality Vent - prvc Vent - prvc FiO2 50.0 mmHg/% 40.0 mmHg/% Blood Gas Tidal Volume 450 mL 450 mL Blood Gas PEEP 5 cm H2O 5 cm H2O White Blood Count 7.3 X10'3 (4.5-11.0) Red Blood Count 3.78 X10'6 (4.70-6.10) Hemoglobin 11.9 g/dl (14.0-17.9) Hematocrit 35.5 % (42.0-52.0) Mean Corpuscular Volume 93.9 FL (78-98) Mean Corpuscular Hemoglobin 31.3 PG (27.0-31.0) Mean Corpuscular Hemoglobin Concent 33.4 g/dL (33.0-36.5) Red Cell Distribution Width 15.3 % (11.5-14.5) Platelet Count 184 X10'3 (140-440) Mean Platelet Volume 8.4 FL (7.4-10.4) Neutrophils (%) (Auto) 92.3 % (42-75) Lymphocytes (%) (Auto) 6.2 % (21-51) Monocytes (%) (Auto) 1.2 % (2-12) Eosinophils (%) (Auto) 0.2 % (0-6) Basophils (%) (Auto) 0.1 % (0-1) Neutrophils # (Auto) 6.7 X10'3 (1.8-7.7) Lymphocytes # (Auto) 0.5 X10'3 (1.1-4.8) Monocytes # (Auto) 0.1 X10'3 (0-0.9) Eosinophils # (Auto) 0.0 X10'3 (0-0.9) Basophils # (Auto) 0.0 X10'3 (0-0.2) CBC Comment Sodium Level 142 MMOL/L (135-145) Potassium Level 3.6 MMOL/L (3.5-5.1) Chloride Level 113 MMOL/L (99-107) Carbon Dioxide Level 18.2 MMOL/L (24-32) Anion Gap 11 (8-16) Blood Urea Nitrogen 17 MG/DL (7-18) Creatinine 0.85 MG/DL (0.60-1.10) Estimated GFR/1.73 m2 89 ML/MIN BUN/Creatinine Ratio 20.0 (10.0-20.0) Glucose Level 126 MG/DL (70-104) Lactic Acid Level 0.7 MMOL/L (0.4-2.0) Calcium Level 7.3 MG/DL (8.5-10.1) Phosphorus Level 3.2 MG/DL (2.3-4.5) Magnesium Level 2.0 MG/DL (1.5-2.4) Total Bilirubin 0.5 MG/DL (0.1-1.0) Aspartate Amino Transf (AST/SGOT) 28 U/L (10-37) Alanine Aminotransferase (ALT/SGPT) 25 U/L (12-78) Alkaline Phosphatase 58 IU/L (46-116) Total Protein 5.5 G/DL (6.4-8.2) Albumin 2.8 G/DL (3.4-5.0) Globulin 2.7 G/DL (2.7-4.3) Albumin/Globulin Ratio 1.0 (1.1-1.5) Chemistry Comments Allergies: Coded Allergies: No Known Allergies (Unverified , 11/03/24) Home Medications Home Medications Active Nebulizer 1 Each Each Unit please dispense with tubing and mask etc. Symbicort 80-4.5 Mcg Inhaler (Budesonide/Formoterol Fumarate) 80 Mcg-4.5 Mcg/Actuation Hfa.aer.ad 2 Puffs INH Q12H 30 Days Ventolin Hfa (Albuterol Sulfate) 90 Mcg Hfa.aer.ad 2 Puffs INH Q4H Past Medical History Past Medical History Completed Orders - RODERICK POLLARD MD Cbc/Diff (11/04/24 03:00) CMP (11/04/24 03:00) MG (11/04/24 03:00) Electrocardiogram (11/04/24 06:00) Perflutren Protein-A Microsphr (Optison (11/03/24 21:40) * Rt Notification Q1H (11/03/24 21:36) Lidocaine 2% Jelly 11ml Syr (Glydo-Lidoc (11/03/24 21:40) * Page Rt Stat-Mixed Venous (11/03/24 21:36) Normal Saline 1000ml (0.9% Sodium Chlori (11/03/24 22:05) MG (11/03/24 22:10) TSH (11/03/24 22:10) Chest,Single View (11/04/24 05:00) LA (11/04/24 05:00) Normal Saline 1000ml (0.9% Sodium Chlori (11/04/24 02:00) PHOS (11/04/24 02:20) Exam Vitals: Vital Signs Date Time Temp Pulse Resp B/P (MAP) Pulse Ox O2 Delivery O2 Flow Rate FiO2 11/03/24 23:16 94.9 92 18 112/66 (81) 99 50 11/03/24 19:58 50.0 Diagnostic Data Last Recorded Lab Results: 11/03/24 1736 11/03/24 1736 Diagnostic Data: Laboratory Tests Test 11/03/24 17:34 11/03/24 17:36 11/03/24 17:52 11/03/24 18:01 Glucometer 247 mg/dl White Blood Count 10.7 X10'3 Red Blood Count 4.56 X10'6 Hemoglobin 14.2 g/dl Hematocrit 43.2 % Mean Corpuscular Volume 94.6 FL Mean Corpuscular Hemoglobin 31.0 PG Mean Corpuscular Hemoglobin Concent 32.8 g/dL Red Cell Distribution Width 15.6 % Platelet Count 281 X10'3 Mean Platelet Volume 8.5 FL Neutrophils (%) (Auto) 45.6 % Lymphocytes (%) (Auto) 42.1 % Monocytes (%) (Auto) 6.1 % Eosinophils (%) (Auto) 5.2 % Basophils (%) (Auto) 1.0 % Neutrophils # (Auto) 4.9 X10'3 Lymphocytes # (Auto) 4.5 X10'3 Monocytes # (Auto) 0.7 X10'3 Eosinophils # (Auto) 0.6 X10'3 Basophils # (Auto) 0.1 X10'3 CBC Comment Sodium Level 139 MMOL/L Potassium Level 3.6 MMOL/L Chloride Level 103 MMOL/L Carbon Dioxide Level 18.9 MMOL/L Anion Gap 17 Blood Urea Nitrogen 23 MG/DL Creatinine 1.79 MG/DL Estimated GFR/1.73 m2 38 ML/MIN BUN/Creatinine Ratio 12.8 Glucose Level 283 MG/DL Lactic Acid Level 8.1 MMOL/L Calcium Level 8.7 MG/DL Magnesium Level 2.5 MG/DL Troponin I High Sensitivity 6 ng/L Pro-B-Type Natriuretic Peptide 62 PG/ML Albumin 3.8 G/DL Procalcitonin < 0.05 NG/ML Chemistry Comments Blood Gas Specimen Type Arterial Blood Gas Puncture Site Rr O2 Saturation 98.4 % Arterial Blood pH (Temp corrected) 7.085 Arterial Blood pCO2 (Temp correct) 61.1 mmHg Arterial Blood pO2 (Temp corrected) 160.4 mmHg Arterial Blood PO2/FiO2 Ratio 3.21 mmHg/% Arterial Blood HCO3 17.9 mmol/L Arterial Blood Base Excess -12.7 mmol/L Arterial Blood Oxyhemoglobin 97.3 % Arterial Blood Carboxyhemoglobin 0.9 % Arterial Blood Methemoglobin 0.2 % Arterial Blood Deoxyhemoglobin 1.6 % Clement Test Positive Blood Gas Hemoglobin 14.9 G/dl Blood Gas Temperature 37.0 Blood Gas Set Respiration Rate 16 b/min Blood Gas Modality Vent - aprv FiO2 50.0 mmHg/% Blood Gas Tidal Volume 500 mL Blood Gas PEEP 5 cm H2O Blood Gas Critical Value Called To [facility] Urine Specimen Description Coulter cath Urine Color Yellow Urine Clarity Slightly cloudy Urine pH 6.0 Urine Specific [place] >=1.030 Urine Protein >=300 mg/dl Urine Glucose (UA) 250 mg/dl Urine Ketones Negative mg/dl Urine Occult Blood Large Urine Nitrite Negative Urine Bilirubin Negative Urine Urobilinogen 0.2 E.U/dL Urine Leukocyte Esterase Negative Urine RBC Tntc /HPF Urine WBC Tntc /HPF Urine Squamous Epithelial Cells None seen /LPF Urine Bacteria 4+ /HPF Urine Coarse Granular Casts 3-5 /LPF Urine Culture Indicated Indicated Volume Urine Centrifuged 10 ml Urine Comment Urine Opiates Screen Negative Urine Methadone Screen Negative Urine Fentanyl Screen Negative Urine Barbiturates Screen Negative Urine Phencyclidine Screen Negative Urine Amphetamines Screen Positive Urine Benzodiazepines Screen Negative Urine Cocaine Screen Negative Urine Cannabinoids Screen Negative Drug Screen Comment Test 11/03/24 18:03 11/03/24 20:01 11/03/24 21:15 11/03/24 21:47 SARS-CoV-2 Antigen (Rapid) Negative Lactic Acid Level 1.1 MMOL/L Troponin I High Sensitivity 31 ng/L 37 ng/L Troponin I High Sens Percent Delta 416 % 19 % Troponin I Hi Sens Absolute Change 25 ng/L 6 ng/L Magnesium Level 2.0 MG/DL Thyroid Stimulating Hormone (TSH) 1.20 ulU/ml Test 11/03/24 23:29 11/04/24 02:20 11/04/24 03:29 Blood Gas Specimen Type Arterial Arterial Blood Gas Puncture Site Rr Rr O2 Saturation 98.4 % 98.6 % Arterial Blood pH (Temp corrected) 7.315 7.364 Arterial Blood pCO2 (Temp correct) 33.9 mmHg 27.5 mmHg Arterial Blood pO2 (Temp corrected) 125.9 mmHg 104.9 mmHg Arterial Blood PO2/FiO2 Ratio 2.76 mmHg/% 3.03 mmHg/% Arterial Blood HCO3 17.3 mmol/L 15.8 mmol/L Arterial Blood Base Excess -8.6 mmol/L -9.0 mmol/L Arterial Blood Oxyhemoglobin 97.8 % 97.8 % Arterial Blood Carboxyhemoglobin 0.3 % 0.5 % Arterial Blood Methemoglobin 0.3 % 0.3 % Arterial Blood Deoxyhemoglobin 1.6 % 1.4 % Clement Test Modified Modified Blood Gas Hemoglobin 12.8 G/dl 12.3 G/dl Blood Gas Temperature 34.9 34.2 Blood Gas Set Respiration Rate 18 b/min 18 b/min Blood Gas Modality Vent - prvc Vent - prvc FiO2 50.0 mmHg/% 40.0 mmHg/% Blood Gas Tidal Volume 450 mL 450 mL Blood Gas PEEP 5 cm H2O 5 cm H2O White Blood Count 7.3 X10'3 Red Blood Count 3.78 X10'6 Hemoglobin 11.9 g/dl Hematocrit 35.5 % Mean Corpuscular Volume 93.9 FL Mean Corpuscular Hemoglobin 31.3 PG Mean Corpuscular Hemoglobin Concent 33.4 g/dL Red Cell Distribution Width 15.3 % Platelet Count 184 X10'3 Mean Platelet Volume 8.4 FL Neutrophils (%) (Auto) 92.3 % Lymphocytes (%) (Auto) 6.2 % Monocytes (%) (Auto) 1.2 % Eosinophils (%) (Auto) 0.2 % Basophils (%) (Auto) 0.1 % Neutrophils # (Auto) 6.7 X10'3 Lymphocytes # (Auto) 0.5 X10'3 Monocytes # (Auto) 0.1 X10'3 Eosinophils # (Auto) 0.0 X10'3 Basophils # (Auto) 0.0 X10'3 CBC Comment Sodium Level 142 MMOL/L Potassium Level 3.6 MMOL/L Chloride Level 113 MMOL/L Carbon Dioxide Level 18.2 MMOL/L Anion Gap 11 Blood Urea Nitrogen 17 MG/DL Creatinine 0.85 MG/DL Estimated GFR/1.73 m2 89 ML/MIN BUN/Creatinine Ratio 20.0 Glucose Level 126 MG/DL Lactic Acid Level 0.7 MMOL/L Calcium Level 7.3 MG/DL Phosphorus Level 3.2 MG/DL Magnesium Level 2.0 MG/DL Total Bilirubin 0.5 MG/DL Aspartate Amino Transf (AST/SGOT) 28 U/L Alanine Aminotransferase (ALT/SGPT) 25 U/L Alkaline Phosphatase 58 IU/L Total Protein 5.5 G/DL Albumin 2.8 G/DL Globulin 2.7 G/DL Albumin/Globulin Ratio 1.0 Chemistry Comments Current Medications 24 hours Medications (Trade) Dose Ordered Sig/Yvonne Route PRN Reason Start Time Stop Time Status Last Admin Dose Admin Propofol 100 ml @ ud STK-MED ONCE IV 11/03/24 17:41 11/03/24 17:41 DC Sodium Chloride (0.9% sodium chloride (NS) 1000ml IV soln) 1,000 ml ONCE ONCE IVB 11/03/24 17:45 11/03/24 17:47 DC 11/03/24 18:03 1,000 ML Ceftriaxone Sodium/Dextrose 50 ml @ 100 mls/hr ONCE ONCE IV 11/03/24 17:45 11/03/24 18:14 DC 11/03/24 18:29 100 MLS/HR Methylprednisolone Sodium Succinate (SoluMEDROL 125mg inj) 125 mg ONCE ONCE IV 11/03/24 17:45 11/03/24 17:47 DC 11/03/24 18:30 125 MG Magnesium Sulfate 50 ml @ 25 mls/hr ONCE ONCE IV 11/03/24 17:45 11/03/24 19:44 DC Sodium Chloride (0.9% sodium chloride (NS) 1000ml IV soln) 1,000 ml ONCE ONCE IVB 11/03/24 18:25 11/03/24 18:26 DC 11/03/24 18:27 1,000 ML Propofol 100 ml @ 1.773 mls/ hr Q48H IV 11/03/24 17:45 11/04/24 07:06 1.773 MLS/HR Fentanyl Citrate 100 ml @ 3.5 mls/hr [id number] IV 11/03/24 19:05 11/04/24 07:07 6.5 MLS/HR Midazolam HCl (Versed 5 MG/ML 2ML inj) 5 mg ONCE ONCE IV 11/03/24 19:20 11/03/24 19:21 DC 11/03/24 19:22 5 MG Midazolam HCl (Versed 5 MG/ML 2ML inj) 10 mg STK-MED ONCE .ROUTE 11/03/24 19:21 11/03/24 19:21 DC Miscellaneous (Communication Order) 1 ea ONCE ONCE MC 11/03/24 20:30 11/03/24 20:31 DC Dexmedetomidine HCl 1000 mcg/ Sodium Chloride 250 ml @ 0 mls/hr Q0M IV 11/03/24 21:10 Cancel Dexmedetomidine/ Sodium Chloride 100 ml @ 2.955 mls/ hr [id number] IV 11/03/24 21:18 11/03/24 22:21 2.955 MLS/HR Midazolam HCl (VERSED 1 MG/ML 2 ML inj.) 2 mg Q45MIN PRN IV for anxiety/agitation 11/03/24 21:20 11/03/24 23:44 2 MG Acetaminophen (Tylenol tablet) 650 mg Q6H PRN PO MILD PAIN (1-3) 11/03/24 21:40 Morphine Sulfate (morphine inj.) 2 mg Q4H PRN IV moderate pain (4-6) 11/03/24 21:40 Morphine Sulfate (morphine inj.) 4 mg Q4H PRN IV severe pain 7-10 11/03/24 21:40 Ondansetron HCl (Zofran 4mg/2ml vial) 4 mg Q6H PRN IV nausea/vomiting 11/03/24 21:40 Acetaminophen (Tylenol tablet) 650 mg Q6H PRN PO for fever > 101 F 11/03/24 21:40 Magnesium Hydroxide (milk of magnesia oral suspension) 30 ml DAILY PRN PO constipation 11/03/24 21:40 Albuterol/ Ipratropium (ipratrop/ albuterol 0.5-3(2.5) MG/3ml nebule) 3 ml Q4H PRN NEB SOB/WHEEZING 11/03/24 21:40 Perflutren Protein Type A Microsphe (Optison 0.22mg/ ml 3ml Vial) 3 ml ONCE ONCE IV 11/03/24 21:40 11/03/24 21:49 DC Lidocaine HCl (GLYDO-Lidocaine 2% Topical Jelly 11mL syringe) 1 applic ONCE ONCE TOP 11/03/24 21:40 11/03/24 21:49 DC Sodium Chloride 1,000 ml @ 125 mls/hr Q8H IV 11/03/24 22:05 11/04/24 01:23 100 MLS/HR Sodium Chloride 1,000 ml @ 1,000 mls/hr Q1H ONCE IVB 11/03/24 22:05 11/03/24 23:04 DC 11/03/24 22:17 1,000 MLS/HR Norepinephrine Bitartrate 250 ml @ 11.079 mls/ hr [id number] PRN IV to maintain mean MAP 60 11/03/24 22:10 Sodium Chloride 1,000 ml @ 1,000 mls/hr Q1H ONCE IVB 11/04/24 02:00 11/04/24 02:59 DC 11/04/24 02:30 1,000 MLS/HR Pantoprazole Sodium (Protonix 40mg IV) 40 mg DAILY IV 11/04/24 08:00 11/04/24 07:06 40 MG Additional Plan Patient: CYNTHIA GIBBS Medical Record: [id number] [facility] : 1955, Age: 69 Sex: Male [facility] Patient Status: ADM IN Service Date/Time: 11/04/24499 Ordering Physician: RODERICK POLLARD MD Exam: CHEST,SINGLE VIEW EXAM: DI CHEST,SINGLE VIEW HISTORY: while intubated COMPARISON: CT CT CHEST ABDOMEN PELVIS on DOS: 11/03/24, DI CHEST,SINGLE VIEW on DOS: 11/03/24 TECHNIQUE: Portable semi-erect AP view of the chest was performed. FINDINGS: Endotracheal tube is re-identified with its tip 1.9 cm above the angelo. OG tube is re-identified with its tip distal to the GE junction. There are diffuse bilateral interstitial opacities, greater in the lung bases, increased on the left compared with prior chest x-ray. There is new mild elevation of the left hemidiaphragm. No pneumothorax. The heart is not enlarged. IMPRESSION: 1. Endotracheal and OG tubes as above. 2. Increased left lung base atelectasis and/or pneumonia with new mild elevation of the left hemidiaphragm. 3. Interstitial prominence, greatest in the lung bases, increased versus prior chest x-ray. This appearance is suggestive of CHF. [place] [id number] CAT SCAN Patient: CYNTHIA GIBBS Medical Record: [id number] [facility] : 1955, Age: 69 Sex: Male Location: ER Patient Status: [facility] ER Service Date/Time: 11/03/241821 Ordering Physician: TESSY MONTENEGRO PHYS ASSISTANT Exam: CT CHEST ABDOMEN PELVIS EXAM: CT CT CHEST ABDOMEN PELVIS History: Altered LOC/Abnormal labs CT chest: Evaluation is degraded by respiratory motion. Lungs: An endotracheal tube is noted. Assessment of the airways is suboptimal given significant motion artifact, and narrowing of the mainstem bronchi cannot be excluded. There is prominent bronchial wall thickening throughout the lungs, with likely mucoid impaction, most pronounced within the lower lobes. There is interlobular septal thickening. There is pleural parenchymal scarring of the lung apices. Pleura: Unremarkable Heart/Great vessels: No cardiomegaly or pericardial effusion. There are mild atherosclerotic calcifications of the aorta. Ectasia of the ascending aorta measuring up to 3.9 cm. Mediastinum: Unremarkable. Soft tissues/Bones: Unremarkable CT abdomen/pelvis: Liver: Unremarkable. Spleen: Unremarkable. Pancreas: Unremarkable. Gallbladder: Unremarkable. Adrenals: Unremarkable. Kidneys: Unremarkable. No hydronephrosis. Pelvic Viscera: Marked prostatomegaly. A Coulter catheter and gas is seen within the urinary bladder. Vasculature: Ectasia of the infrarenal abdominal aorta. Moderate atherosclerotic aortoiliac calcifications. Retroperitoneum: Unremarkable. Bowel: Colonic diverticulosis without CT evidence of diverticulitis. No bowel obstruction. The appendix is normal. A nasogastric tube is noted. Musculoskeletal: Degenerative changes of the lumbar spine. Soft tissues: Unremarkable. Impression: 1. Motion degraded evaluation. Suboptimal assessment of the mainstem bronchi with narrowing and/or aspiration not excluded. Prominent bronchial wall thickening, with likely mucoid impaction, sequela of aspiration cannot be excluded. 2. Additional findings as detailed. - Acute Encephalopathy --- now intubated and sedated. This may have been as a result of meth amphetamine use . - Acute Respiratory Failure - Initially due to unresponsiveness and inability to protect the airway - at this time we have intubated, maintain current vent settings. Received IV abx. will suggest to continue with Zosyn given risk of aspiration. Will be cautions with fluid administration at this time given evolving chest xray findings. I have reviewed vent settings and ABG which does show improvement in PH given interventions. - Possible Pneumonia --- received Rocephin will suggest to continue with Zosyn given aspiration risk. - Renal Failure - Could be LALIT in the setting of severe dehydration in the setting of meth abuse. Has received copious IV Fluids and will monitor urine output. - Substance Abuse will benefit from Psych and Substance Abuse Navigator help when extubated - Malnutrition - will benefit from Nutrition consult and initiation of Tube feeds in the AM over 60 minutes of Critical Care Time Spent. Thank you Roderick Pollard Date of Service: Nov 04, 2024 Billing Provider: RODERICK POLLARD MD Common Visit Codes: 62754-[id number] CARE 30-74 MIN, 42473-[id number] CARE-EACH +30MIN Secondary Visit Codes: 36452-[id number] CARE PLAN ADDL 30MIN RODERICK POLLARD MD Nov 03, 2024 23:39
[2024-11-04] VITALS (46 sets, daily range): BP systolic 74–116; BP diastolic 40–67; PULSE 64–87; RESP 17–19; O2SAT 86–99
[2024-11-04] MEDS: normal saline 1000ml 1,000 ML IV SCH (01:23)
[2024-11-04] MEDS: normal saline 1000ml 1,000 ML IVB ONE (02:30)
[2024-11-04 02:45] LABS: MEAN PLATELET VOLUME 8.4 FL (7.4-10.4); RED CELL DISTRIBUTION WIDTH 15.3 % (11.5-14.5)
[2024-11-04 03:00] LABS: CREATININE 0.85 MG/DL (0.60-1.10); TOTAL CARBON DIOXIDE 18.2 MMOL/L (24-32); eCRCL 68 ML/MIN; eGFR 89 ML/MIN
[2024-11-04 03:34] LABS: ABG BASE EXCESS -9.0 mmol/L (-2.0-3.0); ABG HCO3 15.8 mmol/L (21.0-28.0); ABG OXYGEN SATURATION 98.6 % (94.0-98.0); ABG PCO2 (T) 27.5 mmHg (35.0-48.0); ABG PH (T) 7.364 (7.350-7.450); ABG PO2 (T) 104.9 mmHg (83.0-108.0); ALLEN'S TEST Modified; FCOHb 0.5 % (0.5-1.5); FHHb 1.4 % (0.0-5.0); FIO2 40.0 mmHg/%; FMetHb 0.3 % (0.0-1.5); FO2Hb 97.8 % (94.0-98.0); MODE VENT - PRVC; PATIENT TEMPERATURE 34.2; PEEP 5 cm H2O; RESPIRATORY RATE 18 b/min; TIDAL VOLUME 450 mL; TOTAL HEMOGLOBIN 12.3 G/dl (13.5-17.5)
--- NOTE | 2024-11-04 07:02 | RADIOLOGY REPORT ---
EXAM: DI CHEST,SINGLE VIEW HISTORY: while intubated COMPARISON: CT CT CHEST ABDOMEN PELVIS on DOS: 11/03/24, DI CHEST,SINGLE VIEW on DOS: 11/03/24 TECHNIQUE: Portable semi-erect AP view of the chest was performed. FINDINGS: Endotracheal tube is re-identified with its tip 1.9 cm above the angelo. OG tube is re-identified wi th its tip distal to the GE junction. There are diffuse bilateral interstitial opacities, greater in the lung bases, increased on the left compared with prior chest x-ray. There is new mild elevation of the left hemidiaphragm. No pneumothorax. The heart is not enlarged. IMPRESSION: 1. Endotracheal and OG tubes as above. 2. Increased left lung base atelectasis and/or pneumonia with new mild elevation of the left hemidiap hragm. 3. Interstitial prominence, greatest in the lung bases, increased versus prior chest x-ray. This danni earance is suggestive of CHF.
--- NOTE | 2024-11-04 08:40 | ELECTROCARDIOGRAPH REPORT ---
[facility] Test Date: 2024-11-03 Test Time: 21:57:47 Pat Name: CYNTHIA GIBBS Department: [facility] Patient ID: [id number] Room: [facility] 2007 Gender: M Log Chipper: : 1955 Requested By: RAVI COLON Order Number: [id number] Reading MD: Measurements Intervals [place] Rate: 105 P: 84 CT: 155 QRS: 70 QRSD: 93 T: 84 QT: 372 QTc: 492 Interpretive Statements Sinus tachycardia Borderline prolonged QT interval Please click the below link to view image of tracing.
[2024-11-04 08:59] LABS: PHOSPHORUS 3.2 MG/DL (2.3-4.5)
--- NOTE | 2024-11-04 12:13 | PROGRESS NOTE ---
Subjective Subjective Patient is seen today. Intubated and sedated with a combination of propofol, Precedex and fentanyl. Arouses to verbal stimulus and following command. He has had moments of agitation. Reason for visit: Pulmonary critical care follow-up Reviewed: Care Plan, H&P, Labs, Radiology Review of Systems Changes from previous H/P or p: No Changes Daily Progress Note Exam Vitals Vital Signs Date Time Temp Pulse Resp B/P (MAP) Pulse Ox O2 Delivery O2 Flow Rate FiO2 11/04/24 11:00 18 35 11/04/24 11:00 99.1 83 78/42 (54) 93 Mechanical Ventilator 11/03/24 19:58 50.0 Result Diagram: 11/04/2421911/04/24219 Exam GENERAL: Sleeping and arousable and in no apparent distress. HEENT: Normocephalic, atraumatic, PERRLA, EOMI, RESPIRATORY: Clear to auscultation bilaterally with no wheezing no rales rhonchi. CHEST: No accessory muscle use, no retractions CV: Tachycardic rate, rhythm, no edema, no murmur, No: JVD GI: Soft, non-tender, bowels sounds present, no rebound, guarding, or rigidity BACK: No CVA tenderness, or swelling MUSCULOSKELETAL: No deformities, no edema SKIN: Warm and extremely diaphoretic, no rash NEURO: Initially the patient was not responding to painful stimuli patient did become agitated moved all extremities PSYCH: Normal mood and affect, no agitation VTE VTE Risk Score VTE Risk Score Reference Ranges: Score 0-1 = Low Risk (Aggressive mobilization; early ambulation; no VTE prophylaxis required) Score 2: Moderate Risk (Intermittent/Pneumatic Compression Device OR Lovenox/Heparin/Coumadin) Score 3-4: High Risk (Intermittent/Pneumatic Compression Device AND Lovenox/Heparin/Coumadin) Score > or = 5: Highest Risk (Intermittent/Pneumatic Compression Device AND Lovenox/Heparin/Coumadin) Assessment/Plan Plan Acute respiratory failure : Hypercapnic and hypoxemic respiratory failure Suspected Pneumonia: CT chest did not reveal any pulmonary infiltrates Encephalopathy Substance abuse with amphetamines LALIT Malnutrition Hypotension Lactic acidosis: Resolved. Plan: Continue mechanical ventilation. Not ready to extubate Discontinue propofol and continue Precedex and fentanyl in light of hypotension Continue fluid resuscitation normal saline at 1:25 a.m. mL/hour Continue antibiotic therapy and repeat procalcitonin level tomorrow Code status: Full code Sedation/analgesia: Continue fentanyl and Precedex and discontinue propofol in light of hypotension Nutrition: We will be initiated tomorrow if the patient does not wean off the ventilator by tomorrow. Overall prognosis: Guarded Critical care time in excess of 35 minutes. Expected Outcome/Goals Expected Outcomes/Goals: maintain stable wt, TF tolerance, bowel regularity, optimal skin integrity JESSE TOM MD Nov 04, 2024 12:13
[2024-11-04] MEDS: ringers solution, lacted 1,000 ML IV ONE ×2 (14:58)
[2024-11-04] MEDS ORDERED: NORepinephrine 8mg/ 250ml NS 250 ML IV PRN (15:43)
[2024-11-04] MEDS ORDERED: FLUT1BLS13 INH (16:37)
[2024-11-04] MEDS ORDERED: TIOT18CA3 INH (16:37)
[2024-11-04] MEDS ORDERED: ALBU18HF2 INH (16:37)
[2024-11-04] MEDS ORDERED: UNABLE TO OBTAIN (16:38)
[2024-11-04] MEDS: piperacillin/tazo 3.375gm/50ml 50 ML IV SCH (16:45)
[2024-11-04] MEDS: propofol 1000mg/100ml bottle 100 ML IV SCH (17:34)
--- NOTE | 2024-11-04 18:11 | CARDIOLOGY REPORT ---
APPROVED REPORT EXAM: Comprehensive 2D, Doppler, and color-flow Echocardiogram. Patient Location: 2007 A Blood Pressure: 81/45 mmHg Heart Rate: 92 bpm Rhythm: SINUS Indications ARRHYTHMIA SHORTNESS OF BREATH Bolt Threader: unknown (pt intubated/sedated) Previous echo: none 2D Dimensions IVSd 0.7 (0.7-1.1cm) LVDd 4.2 cm PWd 0.7 (0.7-1.1cm) IVSs 0.9 (0.8-1.2cm) LVDs 3.2 (2.5-4.0cm) PWs 1.1 (0.8-1.2cm) LVOT Diameter 1.93 (1.8-2.4cm) LVEF(%) 40.4 (>50%) IVC 22.40 mmFS (%) 22.3 % SV 34.9 ml CO 3.0 L/min M-Mode Dimensions Aortic Root 2.71 (2.2-3.7cm) Aortic Cusp Exc 1.34 (1.5-2.0cm) Aortic Valve AoV Peak Joe. 122.1 cm/s AoV VTI 25.3 cm AO Peak GR. 6.0 mmHg AO Mean GR. 3 mmHg LVOT VTI 19.69 cm LVOT Peak Joe. 94.2 cm/s NEIL(VTI)/BSA 2.28 cm2/m2 NEIL (VTI) 2.28 cm2 Mitral Valve MV E Velocity 71.0 cm/s MV Peak Gr. 3 mmHg MV DECEL TIME 164 ms MV A Velocity 84.2 cm/s MV PHT 52 ms E/A Ratio 0.8 MVA (PHT) 4.23 cm2 MV VMax84.1 cm/s TDI Medial E' P. V 10.76 cm/s E/Medial E' 6.6 Tricuspid Valve TR P. Velocity 205 cm/s RAP ESTIMATE 10 mmHg TR Peak Gr. 17 mmHg RVSP 27 mmHg Pulmonary Vein S1 Velocity 65.7 cm/s D2 Velocity 41.5 cm/s PVa Xlzlivpb77.5 cm/s PVa Phbziits22 msec LEFT VENTRICLE Normal LV size and wall thickness. Overall systolic function appears to be mildly decreased. Overall LVEF appears to be about 50% however difficult to evaluate due to poor imaging windows. RIGHT VENTRICLE RV size and function appear grossly normal. ATRIA LA appears at least mildly dilated. RA size appears grossly normal. AORTIC VALVE Probably trileaflet AV appears mildly sclerotic without stenosis or insufficiency. MITRAL VALVE Mild MV annular calcification without stenosis. Trace regurgitation. TRICUSPID VALVE TV appears structurally normal with trace regurgitation. PULMONIC VALVE Normal PV without gross stenosis, physiologic insufficiency. GREAT VESSELS Aortic root is normal in size. IVC is dilated and collapses less than 50% with inspiration. PERICARDIUM Normal pericardium. No effusion. Other Information Study Quality: Technically limited due to patient supine positioning, intubated, and body habitus. Conclusion Overall LVEF appears to be about 50% however difficult to evaluate due to poor imaging windows. Normal LV size and wall thickness. Overall systolic function appears to be mildly decreased. RV size and function appear grossly normal. Probably trileaflet AV appears mildly sclerotic without stenosis or insufficiency. Mild MV annular calcification without stenosis. Trace regurgitation. TV appears structurally normal with trace regurgitation. Normal PV without gross stenosis, physiologic insufficiency. Normal pericardium. No effusion.
[2024-11-05] VITALS (39 sets, daily range): BP systolic 70–122; BP diastolic 43–71; PULSE 60–143; RESP 9–35; O2SAT 80–100
[2024-11-05 02:57] LABS: ABG BASE EXCESS -6.9 mmol/L (-2.0-3.0); ABG HCO3 16.6 mmol/L (21.0-28.0); ABG OXYGEN SATURATION 98.1 % (94.0-98.0); ABG PCO2 (T) 28.0 mmHg (35.0-48.0); ABG PH (T) 7.392 (7.350-7.450); ABG PO2 (T) 106.3 mmHg (83.0-108.0); FCOHb 0.2 % (0.5-1.5); FHHb 1.9 % (0.0-5.0); FIO2 35.0 mmHg/%; FMetHb 0.3 % (0.0-1.5); FO2Hb 97.6 % (94.0-98.0); MODE VENT - PRVC; PATIENT TEMPERATURE 37.2; PEEP 5 cm H2O; RESPIRATORY RATE 18 b/min; TIDAL VOLUME 450 mL; TOTAL HEMOGLOBIN 12.2 G/dl (13.5-17.5)
--- NOTE | 2024-11-05 05:57 | RADIOLOGY REPORT ---
CHEST RADIOGRAPH Indication: while intubated Technique: 1 view Comparison: DI CHEST,SINGLE VIEW on DOS: 11/04/24, DI CHEST,SINGLE VIEW on DOS: 11/03/24 FINDINGS: Lines and Tubes: Unchanged endotracheal and enteric tubes. Lungs/Pleura: Unchanged. Cardiomediastinum: Unchanged. Other: No other change. IMPRESSION: 1. No significant change from the previous study. Stable support devices. Mixed opacities within the ckoca-nlyhwmq-uqwt-left lungs most pronounced at the lung bases. No large pleural effusion.
[2024-11-05 06:09] LABS: MEAN PLATELET VOLUME 9.3 FL (7.4-10.4); RED CELL DISTRIBUTION WIDTH 15.6 % (11.5-14.5)
[2024-11-05 06:31] LABS: CREATININE 0.78 MG/DL (0.60-1.10); PHOSPHORUS 2.3 MG/DL (2.3-4.5); TOTAL CARBON DIOXIDE 18.0 MMOL/L (24-32); eCRCL 74 ML/MIN; eGFR > 90 ML/MIN
[2024-11-05] MEDS: ringers solution, lacted 1,000 ML IV ONE (09:01)
[2024-11-05] MEDS ORDERED: EMPA10TA PO (11:09)
[2024-11-05] MEDS ORDERED: SACU1TAB PO (11:09)
[2024-11-05] MEDS ORDERED: ATOR40TA72 PO (11:09)
[2024-11-05] MEDS ORDERED: ALBU2.5V10 NEB (11:09)
[2024-11-05] MEDS ORDERED: SPIR25TA5 PO (11:09)
[2024-11-05] MEDS ORDERED: METO-395 PO (11:09)
[2024-11-05] MEDS: enoxaparin 40mg/0.4ml syringe SQ SCH (11:18)
[2024-11-05] MEDS: magnesium hydroxide 30ml (MOM) UD suspension OGT PRN (11:19)
--- NOTE | 2024-11-05 13:01 | RADIOLOGY REPORT ---
CHEST RADIOGRAPH Indication: Central Line Placement Technique: Single frontal view of the chest was obtained COMPARISON: DI CHEST,SINGLE VIEW on DOS: 11/05/24, DI CHEST,SINGLE VIEW on DOS: 11/04/24, CT CT CHEST A BDOMEN PELVIS on DOS: 11/03/24, DI CHEST,SINGLE VIEW on DOS: 11/03/24 FINDINGS: Lines and Tubes: Endotracheal tube, enteric catheter and right central venous catheter in satisfactor y position Lungs: Congestion Pleura: No effusion. No pneumothorax. Cardiomediastinal contours: Unremarkable Bones: Unremarkable IMPRESSION: Right central venous catheter in satisfactory position.
[2024-11-05] MEDS: NORepinephrine 8mg/ 250ml NS 250 ML IV SCH (13:21)
--- NOTE | 2024-11-05 17:47 | PROCEDURE NOTE- Residance ---
Procedure Note Providers to CC ~ Planned Procedure Internal Jugular Central Line Indications Rapid decompensation, persistent hypotension, norepinephrine administration, Hemodynamic monitoring Post Operative Dx: Acute respiratory failure Single Resource Boss Dr Lawson Herrera Type of Anesthesia Local Lidocaine Informed Consent Obtained Description A time out was performed. My hands were washed immediately prior to the procedure. I wore a surgical cap, mask with protective eyewear, full gown and sterile gloves throughout the procedure. The patient was placed in Trendelenburg position. RIGHT chest region was prepped using chlorhexidine scrub and draped in sterile fashion using a full drape and sterile probe cover and sterile gel employed. The medial and lateral heads of the sternocleidomastoid muscle were identified as was the carotid pulse. The Internal Jugular vein was identified using the ultrasound. Anesthesia was achieved over the vein using 1% lidocaine. Using real-time out of plane guidance, the introducer needle was inserted into the right Internal Jugular vein under direct ultrasound visualization. Venous blood was withdrawn. The syringe was removed and a guidewire was advanced into the introducer needle. The guidewire was visualized in the Internal Jugular Vein by ultrasound. A small incision was made at the skin surface with a scalpel and the introducer needle was exchanged for a dilator over the guidewire. After appropriate dilation was obtained, the dilator was exchanged over the wire for a curved central venous catheter. The wire was removed and the catheter was sutured in place. A sterile sorbaview shield was placed over the catheter at the insertion site. The patient tolerated the procedure without any hemodynamic compromise. At time of procedure completion, all ports aspirated and flushed properly. Post-procedure chest x- ray reviewed and line is in appropriate position. Estimated blood loss is 5cc. Estimated Blood Loss 5mL Complication None X-Ray Findings X-Ray Findings 1. Mixed opacities within the hhpjq-qxtzsyo-qbpk-left lungs most pronounced at the lung bases. 2. Intervally placed right IJ catheter terminates over the expected position of the SVC confluence. Date of Service: Nov 05, 2024 Billing Provider: JESSE TOM MD, LUCAS, RES Nov 05, 2024 17:47
--- NOTE | 2024-11-05 18:12 | CONSULTATION REPORT - RESIDENT ---
Consult Providers to CC Resident Creating Document: RHODAWILIANAVRIL ROSENBERG, RES CC: MICA BEAR MD History of Present Illness Reason for Admit\Complaint: Agitation and combative History of Present Illness A 69-year-old male with unknown past medical history was brought in by the EMS in view of shortness of breaths, agitation and being combative. Reportedly, patient became apneic and bradycardic with his heart rate dropping down to 30s when he was restrained in view of agitation. Patient was eventually unresponsive and in acute respiratory distress requiring him to be intubated. On further investigations, patient was found to have lactic acid of 8 indicating acidosis. And has been sedated with fentanyl , propofol and Precedex to combat agitation. Fluid resuscitation, breathing treatments and IV Solu-Medrol has been given in the ED. Patient was found to be positive for methamphetamine and his U tox. CT head was negative for any acute intracranial findings. No further history could be obtained in view of sedation and intubation. Most of the history is from the H&P and ED notes. Allergies: Coded Allergies: No Known Allergies (Unverified , 11/03/24) Home Medications Home Medications Active Nebulizer 1 Each Each Unit please dispense with tubing and mask etc. Reported Metoprolol Succinate 25 Mg Tab.sr.24h 1 Tab PO DAILY Atorvastatin Calcium 40 Mg Tablet 1 Tab PO DAILY Albuterol Sulfate (Albuterol) 2.5 Mg/3 Ml Vial.neb 1 Vial NEB Q6H PRN Spironolactone 25 Mg Tablet 0.5 Tab PO DAILY Entresto 24 mg-26 mg Tablet (Sacubitril/Valsartan) 24 Mg-26 Mg Tablet 1 Tab PO BID Jardiance (Empagliflozin) 10 Mg Tablet 1 Tab PO DAILY Fluticasone-Salmeterol 250-50 (Fluticasone Propion/Salmeterol) 250 Mcg-50 Mcg/Dose Blst.w.dev 1 Puffs INH Q12H 30 Days Spiriva (Tiotropium [place]) 18 Mcg Cap.w.dev 1 Cap INH DAILY 30 Days Past Medical History Past Medical History Unknown Past Surgical History Surgical History Comment Unknown Past Social History Social History Comment Unknown ROS ROS Could not be elicited as the patient is intubated and sedated Exam Vitals: Vital Signs Date Time Temp Pulse Resp B/P (MAP) Pulse Ox O2 Delivery O2 Flow Rate FiO2 11/05/24 17:58 97.5 70 18 98/57 (71) 100 Mechanical Ventilator 40 11/03/24 19:58 50.0 General: General: Intubated and sedated, arouses to verbal commands with intermittent episodes of agitation HEENT: PERRLA, no icterus, pallor, lymphadenopathy, carotid bruit Respiratory system: Bilateral vesicular breath sounds heard, no adventitious breath sounds CVS: S1-S2 heard, no murmurs/rubs/gallop GI: Soft, nontender, no organomegaly, no guarding/rigidity, bowel sounds present Neuro: No focal neurological deficits present Extremities: No edema cyanosis clubbing/deformities Skin: Warm and dry Diagnostic Data Last Recorded Lab Results: 11/05/2442011/05/24420 Additional Plan Assessment: A 69-year-old male with unknown past medical history was brought in by the EMS in view of agitation and altered mental status. Patient's heart rate dropped down to 30s with the acute respiratory distress requiring him to be intubated. Patient is admitted to the ICU in view of toxic encephalopathy, acute hypoxemic respiratory failure. Plan: AMS 2/2 toxic encephalopathy Methamphetamine use disorder CT head: Negative for any acute intracranial findings U tox positive for methamphetamines On Precedex, fentanyl and propofol RASS goal: 0 to -1 Wean sedation as tolerated Substance use navigator Acute hypoxemic/hypercapnic respiratory failure 2/2 possible community-acquired pneumonia CXR: Mixed opacities within the fzrbq-owoqcqk-qsgh-left lungs most pronounced at the lung bases IV Zosyn q.8h Follow up with respiratory cultures and blood cultures Breathing treatments Intubated: PRVC/450/18/5/40%, PF ratio: 265 Failed SBT in view of mentation Wean as tolerated Hypotensive shock probably secondary to hypovolemia Bradycardia, POA-improving Continue to monitor vitals Currently on norepinephrine drip Wean as tolerated Prerenal LALIT probably secondary to renal tubular stasis Elevated BUN and creatinine Continue to monitor BMP Continue IV fluids at 100 cc/hour Lactic acidosis, resolved GI prophylaxis: IV Protonix 40 mg Code status: Full code Diet: Tube feeds DVT prophylaxis: SCD Disposition: Continue care in CICU, management per gas pumper. Hospitalist team we will continue to follow up with the patient Critical care time: 45 minutes Avril Roy MD Internal Medicine, PGY 2 Date of Service: Nov 05, 2024 Billing Provider: MICA BEAR MD, SIVA, RES Nov 05, 2024 18:12
--- NOTE | 2024-11-05 22:42 | PROGRESS NOTE ---
Progress Note Dictate Providers to CC ~ Antibiotic Ordered?: Yes Objective Vitals Vital Signs Date Time Temp Pulse Resp B/P (MAP) Pulse Ox O2 Delivery O2 Flow Rate FiO2 11/05/24 21:03 87 18 97 35 11/05/24 21:00 98.6 87/49 (62) Mechanical Ventilator 11/05/24 20:00 35.0 Lab Results: 11/05/24 0421 11/05/24 0421 Problem\Assessment\Plan Additional Plan Night Time TeleCoverage Patient seen and evaluated with the bedside RN and insulation cupola charger using HIPPA complaint AV device Patient remains intubated and lightly sedated Intubated following agitation and respiratory failure, positive amphetamine use Continue vent mgt Daily SBT Zosyn for PNA CCT 60mins MD RENAN Lepe,JOHANA Cee MD Nov 05, 2024 22:42
[2024-11-06] VITALS (35 sets, daily range): BP systolic 79–140; BP diastolic 45–76; PULSE 56–94; RESP 17–18; O2SAT 94–98
[2024-11-06 02:26] LABS: MEAN PLATELET VOLUME 8.5 FL (7.4-10.4); RED CELL DISTRIBUTION WIDTH 15.5 % (11.5-14.5)
[2024-11-06 02:45] LABS: CREATININE 0.63 MG/DL (0.60-1.10); PHOSPHORUS 1.6 MG/DL (2.3-4.5); TOTAL CARBON DIOXIDE 22.1 MMOL/L (24-32); eCRCL 95 ML/MIN; eGFR > 90 ML/MIN
[2024-11-06 02:45] LABS: ABG BASE EXCESS -5.5 mmol/L (-2.0-3.0); ABG HCO3 19.9 mmol/L (21.0-28.0); ABG OXYGEN SATURATION 96.0 % (94.0-98.0); ABG PCO2 (T) 38.2 mmHg (35.0-48.0); ABG PH (T) 7.333 (7.350-7.450); ABG PO2 (T) 80.7 mmHg (83.0-108.0); FCOHb 0.3 % (0.5-1.5); FHHb 4.0 % (0.0-5.0); FIO2 30.0 mmHg/%; FMetHb 0.3 % (0.0-1.5); FO2Hb 95.4 % (94.0-98.0); MODE VENT - PRVC; PATIENT TEMPERATURE 36.9; PEEP 5 cm H2O; RESPIRATORY RATE 18 b/min; TIDAL VOLUME 450 mL; TOTAL HEMOGLOBIN 12.1 G/dl (13.5-17.5)
--- NOTE | 2024-11-06 06:00 | RADIOLOGY REPORT ---
CHEST RADIOGRAPH Indication: while intubated Technique: 2 view Comparison: DI CHEST,SINGLE VIEW on DOS: 11/05/24, DI CHEST,SINGLE VIEW on DOS: 11/05/24, DI CHEST,SING LE VIEW on DOS: 11/04/24, DI CHEST,SINGLE VIEW on DOS: 11/03/24 FINDINGS: Lines and Tubes: Unchanged endotracheal tube, enteric tube, and right IJ catheter. Lungs/Pleura: Unchanged. Cardiomediastinum: Unchanged. Other: Unchanged osseous structures. IMPRESSION: 1. No significant change from the previous study. Stable support devices. Bilateral interstitial opa cities. Hazy basilar opacities likely representing atelectasis and/or small pleural effusions.
[2024-11-06] MEDS ORDERED: sodium phosphate inj. 30 MMOL in dextrose 5%-water 250 ML IV PRN (06:45)
[2024-11-06] MEDS ORDERED: magnesium sulf-water 2g/50mL 50 ML IV PRN (06:45)
[2024-11-06] MEDS ORDERED: magnesium sulf-water 4G/100mL 100 ML IV PRN (06:45)
[2024-11-06] MEDS ORDERED: potassium Cl 20 mEq SR tablet PO PRN ×2 (06:45)
[2024-11-06] MEDS: K and/or MAG REPLACEMENT MC SCH (08:00)
[2024-11-06] MEDS: sodium phosphate inj. 15 MMOL in dextrose 5%-water 250 ML IV PRN (09:47)
--- NOTE | 2024-11-06 14:36 | PROGRESS NOTE- Residence ---
Progress Note - Resident Providers to CC Resident Creating Document: AVRIL COTA RES CC: MICA BEAR MD ~ Antibiotic Timeout Antibiotic Ordered?: Yes Subjective Patient is examined and seen at bedside. Patient continues to be intubated and sedated. Patient failed extubated and trial today secondary to altered mentation. Objective Vital Signs Date Time Temp Pulse Resp B/P (MAP) Pulse Ox O2 Delivery O2 Flow Rate FiO2 11/06/24 14:00 98.2 69 18 99/60 (73) 96 Mechanical Ventilator 30 11/05/24 20:00 35.0 Result Diagram: 11/06/24 0205 11/06/24 0205 General: Intubated and sedated HEENT: PERRLA, no icterus, pallor, lymphadenopathy, carotid bruit Respiratory system: Bilateral vesicular breath sounds heard, no adventitious breath sounds CVS: S1-S2 heard, no murmurs/rubs/gallop GI: Soft, nontender, no organomegaly, no guarding/rigidity, bowel sounds present Neuro: Could not be examined as the patient is sedated Extremities: No edema cyanosis clubbing/deformities Skin: Warm and dry Assessment Assessment A 69-year-old male with unknown past medical history was brought in by the EMS in view of agitation and altered mental status. Patient's heart rate dropped down to 30s with the acute respiratory distress requiring him to be intubated. Patient is admitted to the ICU in view of toxic encephalopathy, acute hypoxemic respiratory failure. Plan Plan AMS 2/2 toxic encephalopathy Methamphetamine use disorder On fentanyl and propofol drip RASS goal: 0 to -1 Wean sedation as tolerated Substance use navigator Acute hypoxemic/hypercapnic respiratory failure 2/2 possible community-acquired pneumonia Continue IV Zosyn q.8h Preliminary cultures negative Breathing treatments Intubated: PRVC/450/18/5/30%, PF ratio: 373 Failed SBT in view of mentation Wean as tolerated Hypotensive shock probably secondary to hypovolemia Bradycardia, POA-improving Continue to monitor vitals Currently on norepinephrine drip Wean as tolerated Prerenal LALIT probably secondary to renal tubular stasis, resolved Lactic acidosis, resolved GI prophylaxis: IV Protonix 40 mg Code status: Full code Diet: Tube feeds DVT prophylaxis: SCD Disposition: Continue care in CICU, management per emt i/85. Hospitalist team we will continue to follow up with the patient Critical care time: 45 minutes Avril Cota MD Internal Medicine, PGY 2 Date of Service: Nov 06, 2024 Billing Provider: MICA BEAR MD,AVRIL, RES Nov 06, 2024 14:36
--- NOTE | 2024-11-06 16:35 | PROGRESS NOTE- Residence ---
Progress Note - Resident Providers to CC Resident Creating Document: NATHAN QUINTERO CC: JESSE TOM MD ~ Antibiotic Timeout Antibiotic Ordered?: Yes Subjective Patient is examined and seen at bedside. Patient failed weaning off sedation today. Continues to get agitated Objective Vital Signs Date Time Temp Pulse Resp B/P (MAP) Pulse Ox O2 Delivery O2 Flow Rate FiO2 11/06/24 15:23 62 18 96 30 11/06/24 15:00 98.1 115/63 (80) Mechanical Ventilator 11/05/24 20:00 35.0 Result Diagram: 11/06/245 11/06/24 0205 General: Intubated, Sedated and mechanically ventilated HEENT: Central line present, No pallor present, no icterus, moist mucous membranes Neck: No masses and tenderness Resp: Lungs clear to auscultation bilaterally. Chest: Normal expansion Cardiovascular: Regular Rate and rhythm, normal S1 and S2 without murmur, rub or gallop Abdomen: Soft, no organomegaly, no guarding and rigidity, bowel sounds present Neuro: Pupils equal and reactive to light Extremities: No cyanosis,clubbing or edema Skin: Warm and Dry. No lesions Assessment Assessment A 69-year-old male with unknown past medical history was brought in by the EMS in view of agitation and altered mental status. Patient's heart rate dropped down to 30s with the acute respiratory distress requiring him to be intubated. Patient is admitted to the ICU in view of toxic encephalopathy, acute hypoxemic respiratory failure. Plan Plan Neuro: AMS 2/2 toxic encephalopathy Methamphetamine use disorder RASS goal: 0 to -1 Wean sedation as tolerated Continue risperidone On fentanyl and propofol drip Will start Precedex in a.m. to wean off sedation Respiratory: Acute hypoxemic/hypercapnic respiratory failure 2/2 possible community-acquired pneumonia Continue IV Zosyn q.8h, day 3 Preliminary cultures negative Intubated: PRVC/450/18/5/30%, PF ratio: 373 Failed SBT in view of mentation CVS: Hypotensive shock probably secondary to hypovolemia Bradycardia, POA-improving Continue to monitor vitals Currently on norepinephrine drip Wean as tolerated Renal: Lactic acidosis, resolved Prerenal LALIT probably secondary to renal tubular stasis, resolved Continue monitoring CMP GI prophylaxis: IV Protonix 40 mg Code status: Full code Diet: Tube feeds DVT prophylaxis: SCD [facility] Nathan Hall MD Internal Medicine Resident PGY-2 Date of Service: Nov 06, 2024 Billing Provider: JESSE TOM MD, LEONARDO LUIS Nov 06, 2024 16:34
[2024-11-07] VITALS (31 sets, daily range): BP systolic 96–150; BP diastolic 50–77; PULSE 52–98; RESP 10–25; TEMP 97.8; O2SAT 88–97
[2024-11-07 02:41] LABS: MEAN PLATELET VOLUME 8.7 FL (7.4-10.4); RED CELL DISTRIBUTION WIDTH 15.8 % (11.5-14.5)
[2024-11-07 02:57] LABS: ABG BASE EXCESS -1.5 mmol/L (-2.0-3.0); ABG HCO3 23.2 mmol/L (21.0-28.0); ABG OXYGEN SATURATION 94.2 % (94.0-98.0); ABG PCO2 (T) 37.9 mmHg (35.0-48.0); ABG PH (T) 7.402 (7.350-7.450); ABG PO2 (T) 65.9 mmHg (83.0-108.0); FCOHb 0.5 % (0.5-1.5); FHHb 5.8 % (0.0-5.0); FIO2 30.0 mmHg/%; FMetHb 0.3 % (0.0-1.5); FO2Hb 93.4 % (94.0-98.0); MODE VENT - PRVC; PATIENT TEMPERATURE 36.2; PEEP 5 cm H2O; RESPIRATORY RATE 18 b/min; TIDAL VOLUME 450 mL; TOTAL HEMOGLOBIN 12.5 G/dl (13.5-17.5)
[2024-11-07 03:00] LABS: CREATININE 0.57 MG/DL (0.60-1.10); PHOSPHORUS 2.2 MG/DL (2.3-4.5); TOTAL CARBON DIOXIDE 26.8 MMOL/L (24-32); eCRCL 105 ML/MIN; eGFR > 90 ML/MIN
[2024-11-07] MEDS: dexmedetomidin/NS 400mcg/100ml 100 ML IV SCH (05:25)
--- NOTE | 2024-11-07 06:01 | RADIOLOGY REPORT ---
CHEST RADIOGRAPH Indication: while intubated Technique: Single frontal view of the chest was obtained COMPARISON: DI CHEST,SINGLE VIEW on DOS: 11/06/24, DI CHEST,SINGLE VIEW on DOS: 11/05/24, DI CHEST,SING LE VIEW on DOS: 11/05/24, DI CHEST,SINGLE VIEW on DOS: 11/04/24, CT CT CHEST ABDOMEN PELVIS on DOS: 10/13 06/05 FINDINGS: Lines and Tubes: Endotracheal tube, enteric catheter and right central venous catheter in satisfactor y position Lungs: Congestion Pleura: No effusion. No pneumothorax. Cardiomediastinal contours: Unremarkable Bones: Unremarkable IMPRESSION: Lines and tubes in satisfactory position. No significant interval change.
[2024-11-07] MEDS: potassium Cl 40MEQ/270ML bag 270 ML IV PRN (08:55)
[2024-11-07] MEDS: potassium Cl 40MEQ/270ML bag 270 ML IV ONE (12:41)
[2024-11-07] MEDS: furosemide 10 MG/1 ML 10ml inj IV ONE (12:42)
--- NOTE | 2024-11-07 14:10 | PROGRESS NOTE- Residence ---
Progress Note - Resident Providers to CC Resident Creating Document: NATHAN QUINTERO CC: JESSE TOM MD ~ Antibiotic Timeout Antibiotic Ordered?: Yes Subjective Patient was examined and seen at bedside. Sedation is being weaned off and he is responding better today. Doing well on spontaneous breathing trials Objective Vital Signs Date Time Temp Pulse Resp B/P (MAP) Pulse Ox O2 Delivery O2 Flow Rate FiO2 11/07/24 11:18 73 20 94 Nasal Cannula 3.0 11/07/24 09:29 30 11/07/24 07:00 97.9 119/66 (83) Result Diagram: 11/07/24 0200 11/07/24 0200 General: Intubated, Sedated and mechanically ventilated HEENT: Central line present, No pallor present, no icterus, moist mucous membranes Neck: No masses and tenderness Resp: Lungs clear to auscultation bilaterally. Chest: Normal expansion Cardiovascular: Regular Rate and rhythm, normal S1 and S2 without murmur, rub or gallop Abdomen: Soft, no organomegaly, no guarding and rigidity, bowel sounds present Neuro: Pupils equal and reactive to light Extremities: No cyanosis,clubbing or edema Skin: Warm and Dry. No lesions Assessment Assessment A 69-year-old male with unknown past medical history was brought in by the EMS in view of agitation and altered mental status. Patient's heart rate dropped down to 30s with the acute respiratory distress requiring him to be intubated. Patient is admitted to the ICU in view of toxic encephalopathy, acute hypoxemic respiratory failure. Plan Plan Neuro: AMS 2/2 toxic encephalopathy, improved Methamphetamine use disorder Continue risperidone Propofol is off Continue to wean off fentanyl Precedex Continue Respiratory: Acute hypoxemic/hypercapnic respiratory failure Pulmonary edema Community-acquired pneumonia All cultures are negative so far Doing well on spontaneous breathing trials and will be extubated today Continue IV Zosyn q.8h, day 4 60 mg of IV Lasix given CVS: Hypotensive shock probably secondary to hypovolemia Bradycardia, POA-improving Continue to monitor vitals Currently on norepinephrine drip Wean as tolerated Renal: Lactic acidosis, resolved Prerenal LALIT probably secondary to renal tubular stasis, resolved Hypokalemia Potassium replacement in place Continue monitoring CMP Hematologic: Mild hypochromic anemia Pending iron studies GI prophylaxis: IV Protonix 40 mg Code status: Full code Diet: Tube feeds DVT prophylaxis: SCD Disposition: Continue care in CICU Nathan Hall MD Internal Medicine Resident PGY-2 Date of Service: Nov 07, 2024 Billing Provider: JESSE TOM MD, LEONARDO LUIS Nov 07, 2024 14:10
--- NOTE | 2024-11-07 17:46 | PROGRESS NOTE- Residence ---
Progress Note - Resident Providers to CC Resident Creating Document: AVRIL COTA RES CC: MICA BEAR MD ~ Antibiotic Timeout Antibiotic Ordered?: Yes Subjective Patient was examined and seen at bedside. Patient is off sedation and better mentation cooper. Patient is extubated and saturating well on 2 L nasal cannula and able to protect his airway. Objective Vital Signs Date Time Temp Pulse Resp B/P (MAP) Pulse Ox O2 Delivery O2 Flow Rate FiO2 11/07/24 11:18 73 20 94 Nasal Cannula 3.0 11/07/24 11:00 30 11/07/24 07:00 97.9 119/66 (83) Result Diagram: 11/07/24 0200 11/07/24 0200 General: Drowsy HEENT: PERRLA, no icterus, pallor, lymphadenopathy, carotid bruit Respiratory system: Bilateral vesicular breath sounds heard, no adventitious breath sounds CVS: S1-S2 heard, no murmurs/rubs/gallop GI: Soft, nontender, no organomegaly, no guarding/rigidity, bowel sounds present Neuro: Could not be examined as the patient is drowsy and not following commands Extremities: No edema cyanosis clubbing/deformities Skin: Warm and dry Assessment Assessment A 69-year-old male with unknown past medical history was brought in by the EMS in view of agitation and altered mental status. Patient's heart rate dropped down to 30s with the acute respiratory distress requiring him to be intubated. Patient is admitted to the ICU in view of toxic encephalopathy, acute hypoxemic respiratory failure. 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 Acute hypoxemic/hypercapnic respiratory failure 2/2 possible community-acquired pneumonia Continue IV Zosyn q.8h (day four) One dose of IV Lasix 60 mg given Preliminary cultures negative Breathing treatments Extubated Hypotensive shock probably secondary to hypovolemia Bradycardia, POA-improving Continue to monitor vitals Currently on norepinephrine drip Wean as tolerated Prerenal LALIT probably secondary to renal tubular stasis, resolved Lactic acidosis, resolved GI prophylaxis: IV Protonix 40 mg Code status: Full code Diet: Regular diet DVT prophylaxis: SCD Disposition: Continue care in CICU, management per stonecutter assistant. Hospitalist team we will continue to follow up with the patient Critical care time: 45 minutes Avril Cota MD Internal Medicine, PGY 2 Date of Service: Nov 07, 2024 Billing Provider: MICA BEAR MD, SIVA, RES Nov 07, 2024 17:46
[2024-11-07] MEDS: ondansetron/PF 4mg/2ml inj IV PRN (17:51)
[2024-11-07] MEDS: potassium phosphate inj 15 MMOL in NS 250ml IV soln 250 ML IV ONE (17:52)
[2024-11-08] VITALS (10 sets, daily range): BP systolic 122–142; BP diastolic 69–74; PULSE 80–121; RESP 14–22; TEMP 97.1–98.3; O2SAT 90–97
[2024-11-08] MEDS: piperacillin/tazo 3.375gm/50ml 50 ML IV SCH (01:52)
[2024-11-08 07:02] LABS: MEAN PLATELET VOLUME 8.8 FL (7.4-10.4); RED CELL DISTRIBUTION WIDTH 15.5 % (11.5-14.5)
[2024-11-08 07:11] LABS: % IRON SATURATION 19 % (11-46)
[2024-11-08 07:33] LABS: CREATININE 0.68 MG/DL (0.60-1.10); PHOSPHORUS 3.4 MG/DL (2.3-4.5); TOTAL CARBON DIOXIDE 30.7 MMOL/L (24-32); eCRCL 88 ML/MIN; eGFR > 90 ML/MIN
[2024-11-08] MEDS ORDERED: ipratropium/albuterol 3ml nebule NEB PRN (10:30)
[2024-11-08] MEDS: methylPREDNISolone sod succ/PF 40mg inj. IV SCH (10:30)
[2024-11-08] MEDS: ipratropium/albuterol 3ml nebule NEB SCH (15:33)
--- NOTE | 2024-11-08 18:06 | PROGRESS NOTE- Residence ---
Progress Note - Resident Providers to CC Resident Creating Document: AVRIL COTA RES CC: MICA BEAR MD ~ Antibiotic Timeout Antibiotic Ordered?: Yes Subjective Patient was examined and seen at bedside. Patient is more alert and oriented, answering all questions. Does not have any complaints. Less agitated. No acute overnight events. Patient has been downgraded to the floor yesterday. Objective Vital Signs Date Time Temp Pulse Resp B/P (MAP) Pulse Ox O2 Delivery O2 Flow Rate FiO2 11/08/24 15:35 106 20 Room Air 0.0 11/08/24 15:33 97 21 11/08/24 15:00 97.9 142/71 (94) Result Diagram: 11/08/2462211/08/24622 General: Alert awake and oriented, not in acute distress HEENT: PERRLA, no icterus, pallor, lymphadenopathy, carotid bruit Respiratory system: Bilateral diffuse crackles heard in all lung regions CVS: S1-S2 heard, no murmurs/rubs/gallop GI: Soft, nontender, no organomegaly, no guarding/rigidity, bowel sounds present Neuro: Could not be examined as the patient is drowsy and not following commands Extremities: No edema cyanosis clubbing/deformities Skin: Warm and dry Assessment Assessment A 69-year-old male with unknown past medical history was brought in by the EMS in view of agitation and altered mental status. Patient's heart rate dropped down to 30s with the acute respiratory distress requiring him to be intubated. Patient is admitted to the ICU in view of toxic encephalopathy, acute hypoxemic respiratory failure. 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 Cultures have been negative so far DuoNeb q.2h p.r.n., q.4h scheduled Incentive spirometry, flutter valve Heart failure with mildly reduced ejection fraction, new onset Methamphetamine induced cardiomyopathy Echo: Ejection fraction: 50%, RVSP: 27 mmHg One dose of IV Lasix 40 mg given, titrate Lasix as required GDM T: Carvedilol 6.25 mg twice daily, Jardiance 10 mg once daily, Aldactone 25 mg once daily, losartan 25 mg once daily Daily weights, strict Is&Os Outpatient cardiology follow up Strict avoidance of methamphetamine Hypotensive shock probably secondary to hypovolemia, resolved Bradycardia, POA-resolved Prerenal LALIT probably secondary to renal tubular stasis, resolved Lactic acidosis, resolved GI prophylaxis: IV Protonix 40 mg Code status: Full code Diet: Regular diet DVT prophylaxis: SCD Disposition: Patient transferred to PCU, probable discharge tomorrow Avril Cota MD Internal Medicine, PGY 2 Date of Service: Nov 08, 2024 Billing Provider: MICA BEAR MD, SIVA, RES Nov 08, 2024 18:06
[2024-11-08] MEDS: pantoprazole 40mg Tablet.DR PO SCH (19:04)
[2024-11-08] MEDS: lactobacillus rhamnosus 10,000 MMU CELLS/CAPSULE PO SCH (19:04)
[2024-11-08 19:05] LABS: CREATININE 0.86 MG/DL (0.60-1.10); eCRCL 70 ML/MIN; eGFR 88 ML/MIN
[2024-11-08] MEDS: carvedilol 6.25mg tablet PO SCH (20:28)
[2024-11-09] VITALS (9 sets, daily range): BP systolic 115–122; BP diastolic 68–69; PULSE 88–119; RESP 14–20; TEMP 98.1–98.9; O2SAT 88–93
[2024-11-09 05:36] LABS: MEAN PLATELET VOLUME 8.8 FL (7.4-10.4); RED CELL DISTRIBUTION WIDTH 14.7 % (11.5-14.5)
[2024-11-09 05:53] LABS: CREATININE 0.85 MG/DL (0.60-1.10); PHOSPHORUS 3.6 MG/DL (2.3-4.5); TOTAL CARBON DIOXIDE 32.4 MMOL/L (24-32); eCRCL 70 ML/MIN; eGFR 89 ML/MIN
[2024-11-09] MEDS: EMPAGLIFLOZIN 10 MG TABLET PO SCH (08:21)
[2024-11-09] MEDS ORDERED: PRED10TA23 PO (12:55)
[2024-11-09] MEDS ORDERED: LACT1CAP26 PO (12:55)
[2024-11-09] MEDS ORDERED: AMOX-580 PO (12:55)
[2024-11-09] MEDS ORDERED: RISP-32 PO (12:55)
--- NOTE | 2024-11-09 15:44 | DISCHARGE SUMMARY-Residence ---
Discharge Summary Providers to CC Resident Creating Document: AVRIL COTA, RES CC: MICA BEAR MD ~ Discharge Summary Admission Diagnosis: Acute Encephalopathy Hospital Course DATE OF ADMISSION: 11/03/24 DATE OF DISCHARGE: 11/09/24 Discharge Diagnosis\Comment: AMS 2/2 toxic encephalopathy, resolved Methamphetamine use disorder Acute hypoxemic/hypercapnic respiratory failure 2/2 possible community-acquired pneumonia (combination of Gram-positive Gram-negative bacteria) Heart failure with mildly reduced ejection fraction, new onset Methamphetamine induced cardiomyopathy Hypotensive shock probably secondary to hypovolemia, resolved Bradycardia, POA-resolved Prerenal LALIT probably secondary to renal tubular stasis, resolved Lactic acidosis, resolved Operations\Procedures: Intubation Consultants: Dr. Pathak (bioinformatics specialist) Complications: None Condition on DC: Stable New Medications: Amox Tr/Potassium Clavulanate 875/125 MG (Augmentin 875/125 MG) 875 Mg-125 Mg Tablet 1 TAB PO BID for 5 Days, #10 TAB Prednisone (Prednisone) 10 Mg Tablet 0 PO DAILY, #42 TAB Take 4 tabs daily x4 days, then 3 daily x4 days 2 daily x4 days 1 daily x4 days 1/2 daily x4 days then STOP Lactobacillus Rhamnosus (Culturelle) 10 Billion Cell Capsule 97196 MMU PO BID for 30 Days, #60 CAP Risperidone (Risperidone) 2 Mg Tablet 2 MG PO HS for 30 Days, #30 TAB Continued Medications: Albuterol Sulfate (Albuterol Sulfate) 2.5 Mg/3 Ml Vial.neb 1 VIAL NEB Q6H PRN for wheezing Atorvastatin Calcium (Atorvastatin Calcium) 40 Mg Tablet 1 TAB PO DAILY Empagliflozin (Jardiance) 10 Mg Tablet 1 TAB PO DAILY Fluticasone Propion/Salmeterol (Fluticasone-Salmeterol 250-50) 250 Mcg-50 Mcg/Dose Blst.w.dev 1 PUFFS INH Q12H for 30 Days, #60 EA 0 Refills Metoprolol Succinate (Metoprolol Succinate) 25 Mg Tab.sr.24h 1 TAB PO DAILY Sacubitril/Valsartan (Entresto 24 mg-26 mg Tablet) 24 Mg-26 Mg Tablet 1 TAB PO BID Spironolactone (Spironolactone) 25 Mg Tablet 0.5 TAB PO DAILY Tiotropium [place] (Spiriva) 18 Mcg Cap.w.dev 1 CAP INH DAILY for 30 Days, #30 CAP 0 Refills Discharge Summary: A 69-year-old male with unknown PMH was brought in with the EMS in view of agitation and altered mental status. In the ED patient's heart rate dropped down to 30s with severe acute respiratory distress requiring him to be intubated. Consequently, patient was admitted to the ICU. Patient's urine drug screen tested positive for methamphetamine, was intubated to protect his airway. On further analysis ABG revealed hypoxemic and hyper cap panic respiratory failure requiring for the support of ventilator. Gradually patient was being trialed for extubation but failed for about three consecutive days in view of agitation and not being able to maintain mentation. While in the ICU, patient was requiring norepinephrine drip to maintain his blood pressures which were dropping secondary to hypovolemic shock. Patient was finally extubated on 11/07/2024. Patient was treated with antibiotics for bilateral hazy opacities which seemed to be like pneumonia requiring management of community-acquired pneumonia with Gram-positive Gram-negative organisms. After extubation and downgraded to the floor patient was found to have bilateral basal crackles requiring Lasix and echo showing mildly reduced ejection fraction indicating the diagnosis of new onset heart failure with mildly reduced ejection fraction secondary to methamphetamine induced cardiomyopathy. Patient was started on GDM T medication. After transfusion with the floor, patient was requiring oxygen especially when he moves around and qualified for home oxygen. But patient left home without waiting for the supply of oxygen which will be sent to him. Patient is physically and mentally stable for discharge. General examination at discharge General: Alert awake and oriented, not in acute distress HEENT: PERRLA, no icterus, pallor, lymphadenopathy, carotid bruit Respiratory system: Bilateral diffuse crackles heard in all lung regions (improving) CVS: S1-S2 heard, no murmurs/rubs/gallop GI: Soft, nontender, no organomegaly, no guarding/rigidity, bowel sounds present Neuro: Could not be examined as the patient is drowsy and not following commands Extremities: No edema cyanosis clubbing/deformities Skin: Warm and dry Labs at discharge: WBC: 7.3, H/H: 13.1/39.4, platelet count: 219 Sodium: 142, potassium: 3.8, BUN: 15, creatinine: 0.85 Imaging: Chest x-ray:Increased left lung base atelectasis and/or pneumonia with new mild elevation of the left hemidiaphragm. Interstitial prominence, greatest in the lung bases, increased versus prior chest x-ray. This appearance is suggestive of CHF. Echo:Overall LVEF appears to be about 50%, Normal LV size and wall thickness. Overall systolic function appears to be mildly decreased. CT head: Artifact degraded evaluation without evidence for acute territorial infarct, intracranial hemorrhage, or mass effect. CT chest abdomen pelvis: Prominent bronchial wall thickening, with likely mucoid impaction, sequela of aspiration cannot be excluded. Discharge medications can be found above and patient is discharged home with the following recommendations: Follow up with PCP within two weeks of discharge. Repeat CBC with differential and BMP within two weeks of discharge at the time of appointment with your PCP Follow up with Cardiology as outpatient in view of new onset heart failure with mildly reduced ejection fraction. Strict avoidance of meth, illicit drugs, alcohol and tobacco smoking. We gave you antibiotics for another five days and probiotic for a month. Please maintain compliance We gave you medications for heart failure. Please maintain compliance. Return to ER or call 911 in view of shortness of breaths, chest pain. *Problems/Diagnosis: (1) New onset of congestive heart failure (2) Acute respiratory failure with hypoxia and hypercapnia (3) Toxic encephalopathy Total Time Spent on D/C: > 30 Minutes Date of Service: Nov 09, 2024 Billing Provider: MICA BEAR MD, SIVA, RES Nov 09, 2024 14:56
== END 2024-11-09 14:04 | disposition home or self-care (01) | DRG 208 ==
LOC: ER 17:33 → ED HOLD 21:47 → CICU 2S 23:30 → PCU 3S 11-07 20:50 → SUR 3N 11-08 21:25
PROVIDERS: ADMIT Internal Medicine; ATTEND Internal Medicine
PROC: 0BH17EZ Insertion of Endotracheal Airway into Trachea, Via Natural or Artificial Opening (ICD-10-PCS; principal; 2024-11-03)
PROC: 5A1945Z Respiratory Ventilation, 24-96 Consecutive Hours (ICD-10-PCS; 2024-11-03)
PROC: 02HV33Z Insertion of Infusion Device into Superior Vena Cava, Percutaneous Approach (ICD-10-PCS; 2024-11-05)
PROC: B548ZZA Ultrasonography of Superior Vena Cava, Guidance (ICD-10-PCS; 2024-11-05)
DX: J96.01 Acute respiratory failure with hypoxia (principal); R57.1 Hypovolemic shock; G92.9 Unspecified toxic encephalopathy; N17.0 Acute kidney failure with tubular necrosis; J15.69 Pneumonia due to other Gram-negative bacteria; J15.9 Unspecified bacterial pneumonia; E87.20 Acidosis, unspecified; J44.0 Chronic obstructive pulmonary disease with (acute) lower respiratory infection; J44.1 Chronic obstructive pulmonary disease with (acute) exacerbation; I50.20 Unspecified systolic (congestive) heart failure; I42.7 Cardiomyopathy due to drug and external agent; Z20.822 Contact with and (suspected) exposure to COVID-19; J96.02 Acute respiratory failure with hypercapnia; I77.810 Thoracic aortic ectasia; F15.10 Other stimulant abuse, uncomplicated; D50.9 Iron deficiency anemia, unspecified; Z87.891 Personal history of nicotine dependence
CPT/HCPCS: 31500; 36415; 36600; 70450; 71045; 71250; 74176; 80048; 80053; 80305; 81001; 82565; 82803; 82948; 83036; 83540; 83550; 83605; 83735; 83880; 84100; 84132; 84134; 84145; 84443; 84466; 84484; 85018; 85025; 87040; 87070; 87081; 87088; 87811; 93005; 93306; 94002; 94003; 94640; 94760; 94799; 97116; 97161; 97530; 99285; A4615; A6196; A6212; A6213; A6223; A6250; A6258; A6449; C1751; C1758; G0378; J0696; J1650; J1938; J2250; J2312; J2405; J2470; J2543; J2704; J2919; J3010; J3480; J3490; J7030; J7040; J7050; J7060; J7120